=== PATIENT | female | born 1970 | race African-American/Black ===

== ENCOUNTER 2016-10-16 22:13 | Inpatient (IN) | payer MEDICAID, OTHER ==
[2016-10-16] MEDS ORDERED: LORazepam 2 MG TABLET PO PRN (22:30)
[2016-10-16] MEDS ORDERED: QUEtiapine FUMARATE 100 MG TABLET PO PRN (22:30)
[2016-10-16 23:06] VITALS: BP 138/89
[2016-10-17 00:18] VITALS: BP 100/60
[2016-10-17 08:28] LABS: BASOPHILS % (AUTO) 0.6 % (0.0-2.0); EOSINOPHILS % (AUTO) 2.6 % (1.0-6.0); HEMATOCRIT 37.7 % (36-46); HEMOGLOBIN 11.4 g/dL (12.0-16.0); LYMPHOCYTES # (AUTO) 2.4 K/uL (1.0-4.8); LYMPHOCYTES % (AUTO) 57.8 % (22.0-44.0); MEAN CORPUSCULAR HEMOGLOBIN 26.2 pg (26.0-34.0); MEAN CORPUSCULAR HGB CONC 30.3 G/dL (31.0-37.0); MEAN CORPUSCULAR VOLUME 87 fL (80-100); MONOCYTES # (AUTO) 0.5 K/uL (0.1-1.0); MONOCYTES % (AUTO) 11.2 % (2.0-9.0); NEUTROPHILS # (AUTO) 1.1 K/uL (1.8-7.7); NEUTROPHILS % (AUTO) 27.8 % (40.0-70.0); PLATELET COUNT (AUTO) 204 K/uL (150-450); RED BLOOD CELL COUNT(AUTO) 4.36 MIL/uL (4.00-5.20); WHITE BLOOD COUNT (AUTO) 4.1 K/uL (4.5-11.0)
[2016-10-17 08:29] VITALS: BP 132/79
[2016-10-17 08:34] LABS: HEMOGLOBIN A1C 6.1 % (4.5-6.2)
[2016-10-17 09:13] LABS: ALANINE AMINOTRANSFERASE 44 U/L (12-78); ANION GAP 6 mmol/L (8-16); ASPARTATE AMINOTRANSFERASE 45 U/L (15-37); BILIRUBIN,TOTAL 0.3 mg/dL (0.1-1.0); CALCIUM, TOTAL 8.6 mg/dL (8.8-10.5); CARBON DIOXIDE 29 mmol/L (22-29); CHLORIDE 105 mmol/L (98-107); CHOL/HDL RATIO 3.8 (3.9-5.7); CREATININE 1.01 mg/dL (0.60-1.30); GLOMERULAR FILTR. RATE CALC > 60 mL/min (>60); POTASSIUM 4.1 mmol/L (3.5-5.1); SODIUM SERUM 140 mmol/L (136-145); THYROID STIMULATING HORMONE 1.16 uIU/mL (0.36-3.74); TOTAL PROTEIN, SERUM 8.1 g/dL (6.4-8.2); UREA NITROGEN, BLOOD 14 mg/dL (7-18)
[2016-10-17 16:00] VITALS: BP 116/79
[2016-10-17] MEDS ORDERED: ACETAMINOPHEN 325 MG TABLET PO PRN (18:45)
[2016-10-17] MEDS ORDERED: ALBUTEROL SULFATE HFA 90 MCG/PUFF 8 GM INHALER IH PRN (18:45)
[2016-10-17] MEDS: ZOLPIDEM TARTRATE 10 MG TABLET PO PRN (20:11)
[2016-10-17] MEDS: BENZTROPINE MESYLATE 1 MG TABLET PO SCH (20:11)
[2016-10-17] MEDS: FluPHENAZine HCL 5 MG TABLET PO SCH (20:11)
[2016-10-18 06:50] VITALS: BP 110/82
[2016-10-18 08:31] VITALS: BP 102/70
[2016-10-18] MEDS: FluPHENAZine HCL 5 MG TABLET PO SCH ×2 (09:12→20:20)
[2016-10-18 16:09] VITALS: BP 114/69
[2016-10-18] MEDS: BENZTROPINE MESYLATE 1 MG TABLET PO SCH (20:19)
[2016-10-18] MEDS: ZOLPIDEM TARTRATE 10 MG TABLET PO PRN (21:01)
[2016-10-19] VITALS: BP 130/60
[2016-10-19] MEDS: IBUPROFEN 400 MG TABLET PO PRN (00:02)
[2016-10-19 08:07] VITALS: BP 109/63
[2016-10-19] MEDS: FluPHENAZine HCL 5 MG TABLET PO SCH ×2 (09:00→20:24)
[2016-10-19 16:04] VITALS: BP 110/68
[2016-10-19] MEDS: MAG HYDROX/AL HYDROX/SIMETH 30 ML SUSP UDCUP PO PRN (19:10)
[2016-10-19] MEDS: BENZTROPINE MESYLATE 1 MG TABLET PO SCH (20:24)
[2016-10-19] MEDS: ZOLPIDEM TARTRATE 10 MG TABLET PO PRN (21:01)
[2016-10-20 01:01] VITALS: BP 112/70
[2016-10-20 08:34] VITALS: BP 119/68
[2016-10-20] MEDS: FluPHENAZine HCL 5 MG TABLET PO SCH (09:04)
[2016-10-20 16:00] VITALS: BP 109/62
[2016-10-20] MEDS: BENZTROPINE MESYLATE 1 MG TABLET PO SCH (20:23)
[2016-10-20] MEDS: FluPHENAZine HCL 10 MG TABLET PO SCH (20:23)
[2016-10-21 07:29] VITALS: BP 130/100
[2016-10-21] MEDS: FluPHENAZine HCL 5 MG TABLET PO SCH (08:22)
[2016-10-21 08:32] VITALS: BP 108/57
[2016-10-21 16:00] VITALS: BP 112/62
[2016-10-21] MEDS: BENZTROPINE MESYLATE 1 MG TABLET PO SCH (20:28)
[2016-10-21] MEDS: FluPHENAZine HCL 10 MG TABLET PO SCH (21:00)
[2016-10-22 03:55] VITALS: BP 118/77
[2016-10-22] MEDS: IBUPROFEN 400 MG TABLET PO PRN ×2 (03:59→16:33)
[2016-10-22] MEDS: FluPHENAZine HCL 5 MG TABLET PO SCH (08:26)
[2016-10-22 08:38] VITALS: BP 108/55
[2016-10-22] MEDS: MAG HYDROX/AL HYDROX/SIMETH 30 ML SUSP UDCUP PO PRN (15:55)
[2016-10-22 16:24] VITALS: BP 117/88
[2016-10-22] MEDS: FluPHENAZine HCL 10 MG TABLET PO SCH (21:00)
[2016-10-22] MEDS: BENZTROPINE MESYLATE 1 MG TABLET PO SCH (21:00)
== END 2016-10-23 00:29 | disposition left against medical advice (07) | DRG 750 ==
LOC: B3A 22:36 → EDSTATUS 22:38 → B3A 10-20 08:23
PROVIDERS: ADMIT Psychiatry & Neurology Psychiatry; ATTEND Psychiatry & Neurology Psychiatry
DX: F20.5 Residual schizophrenia (principal); B18.1 Chronic viral hepatitis B without delta-agent; J44.9 Chronic obstructive pulmonary disease, unspecified; Z91.14 Patient's other noncompliance with medication regimen; F14.10 Cocaine abuse, uncomplicated; Z88.0 Allergy status to penicillin; Z91.018 Allergy to other foods; Z72.0 Tobacco use; K21.9 Gastro-esophageal reflux disease without esophagitis; K59.00 Constipation, unspecified; D64.9 Anemia, unspecified; F10.10 Alcohol abuse, uncomplicated; F15.10 Other stimulant abuse, uncomplicated
CPT/HCPCS: 83036; 84439; 84443

== ENCOUNTER 2017-04-15 20:18 | Emergency (ER) | payer MEDICAID, OTHER ==
[~2017-04-15] VITALS: Ht 160 cm; Wt 72.7 kg
[~2017-04-15 20:18] MED LIST: DIPH25 PO; DSS100 PO; FERR-89 PO; FLUD25I IM; MUPI15CR TP; MV-M1TAB2 PO; OMEP20 PO; RISP.5 PO
[2017-04-15 22:40] LABS: BASOPHILS % (AUTO) 0.3 % (0.0-2.0); EOSINOPHILS % (AUTO) 0.4 % (1.0-6.0); HEMATOCRIT 39.5 % (36-46); LYMPHOCYTES # (AUTO) 1.8 K/uL (1.0-4.8); LYMPHOCYTES % (AUTO) 28.3 % (22.0-44.0); MEAN CORPUSCULAR HEMOGLOBIN 24.1 pg (26.0-34.0); MEAN CORPUSCULAR HGB CONC 30.4 G/dL (31.0-37.0); MEAN CORPUSCULAR VOLUME 79 fL (80-100); MONOCYTES # (AUTO) 0.2 K/uL (0.1-1.0); MONOCYTES % (AUTO) 2.6 % (2.0-9.0); NEUTROPHILS # (AUTO) 4.5 K/uL (1.8-7.7); NEUTROPHILS % (AUTO) 68.4 % (40.0-70.0); PLATELET COUNT (AUTO) 297 K/uL (150-450); RED BLOOD CELL COUNT(AUTO) 4.98 MIL/uL (4.00-5.20); RED CELL DISTRIBUTION WIDTH 19.7 % (11.5-14.5); WHITE BLOOD COUNT (AUTO) 6.5 K/uL (4.5-11.0)
[2017-04-15 22:55] LABS: ANION GAP 4 mmol/L (8-16); CALCIUM, TOTAL 7.8 mg/dL (8.8-10.5); CARBON DIOXIDE 28 mmol/L (22-29); CHLORIDE 105 mmol/L (98-107); CREATININE 1.08 mg/dL (0.60-1.30); GLOMERULAR FILTR. RATE CALC > 60 mL/min (>60); POTASSIUM 4.7 mmol/L (3.5-5.1); SODIUM SERUM 137 mmol/L (136-145); UREA NITROGEN, BLOOD 24 mg/dL (7-18)
[2017-04-15 23:00] LABS: ALANINE AMINOTRANSFERASE 52 U/L (12-78); ALBUMIN 2.2 g/dL (3.4-5.0); ASPARTATE AMINOTRANSFERASE 64 U/L (15-37); BILIRUBIN,TOTAL 0.5 mg/dL (0.1-1.0); TOTAL PROTEIN, SERUM 7.2 g/dL (6.4-8.2)
[2017-04-15 23:09] LABS: RBC MORPHOLOGY COMMENT ABNORMAL RBC MORPH
[2017-04-15] MEDS ORDERED: LORazepam 1 MG TABLET PO ONE (23:45)
[2017-04-15] MEDS ORDERED: HALOPERIDOL 5 MG TABLET PO ONE (23:45)
[2017-04-15] MEDS ORDERED: DiphenhydrAMINE HCL 25 MG/10 ML ELIXIR UDCUP PO ONE (23:45)
[2017-04-16 00:41] VITALS: BP 136/52
== END 2017-04-16 00:54 | disposition home or self-care (01) ==
LOC: EMS 20:22
DX: F20.0 Paranoid schizophrenia (principal); E44.0 Moderate protein-calorie malnutrition; I11.0 Hypertensive heart disease with heart failure; I50.9 Heart failure, unspecified; E78.00 Pure hypercholesterolemia, unspecified; J45.909 Unspecified asthma, uncomplicated; F17.210 Nicotine dependence, cigarettes, uncomplicated; F12.90 Cannabis use, unspecified, uncomplicated; F14.90 Cocaine use, unspecified, uncomplicated; F11.90 Opioid use, unspecified, uncomplicated; F15.90 Other stimulant use, unspecified, uncomplicated; Z68.28 Body mass index [BMI] 28.0-28.9, adult; Z88.0 Allergy status to penicillin; Z91.018 Allergy to other foods
CPT/HCPCS: 36415; 80053; 84703; 85025; 99284; 99406; G0480

== ENCOUNTER 2017-05-03 12:13 | Inpatient (IN) | payer MEDICAID, OTHER ==
[~2017-05-03] VITALS: Ht 160 cm; Wt 65.8 kg
[2017-05-03] MEDS ORDERED: NITROGLYCERIN 2% (1 GM=INCH) PACKET TP ONE (13:00)
[2017-05-03] MEDS ORDERED: ASPIRIN 81 MG CHEWABLE TABLET PO ONE (13:00)
[2017-05-03 13:23] LABS: HEMATOCRIT 36.6 % (36-46); HEMOGLOBIN 11.3 g/dL (12.0-16.0); MEAN CORPUSCULAR HEMOGLOBIN 24.5 pg (26.0-34.0); MEAN CORPUSCULAR VOLUME 79 fL (80-100); PLATELET COUNT (AUTO) 261 K/uL (150-450); RED BLOOD CELL COUNT(AUTO) 4.63 MIL/uL (4.00-5.20); RED CELL DISTRIBUTION WIDTH 20.4 % (11.5-14.5); WHITE BLOOD COUNT (AUTO) 4.4 K/uL (4.5-11.0)
[2017-05-03 13:34] LABS: ANION GAP 7 mmol/L (8-16); CALCIUM, TOTAL 8.1 mg/dL (8.8-10.5); CARBON DIOXIDE 27 mmol/L (22-29); CHLORIDE 107 mmol/L (98-107); GLOMERULAR FILTR. RATE CALC > 60 mL/min (>60); POTASSIUM 4.5 mmol/L (3.5-5.1); SODIUM SERUM 141 mmol/L (136-145); UREA NITROGEN, BLOOD 14 mg/dL (7-18)
[2017-05-03 13:56] LABS: BAND NEUTROPHILS % (MANUAL) 1 % (1-5); LYMPHOCYTES % (MANUAL) 23 % (22-44); REACTIVE LYMPHOCYTES 17 % (0-0); TOTAL CELLS COUNTED 100
[2017-05-03 13:58] LABS: B-TYPE NATRIURETIC PEPTIDE 1830 pg/mL (0-100)
[2017-05-03 13:59] LABS: ALANINE AMINOTRANSFERASE 40 U/L (12-78); ALBUMIN 2.4 g/dL (3.4-5.0); ASPARTATE AMINOTRANSFERASE 52 U/L (15-37); BILIRUBIN,TOTAL 0.5 mg/dL (0.1-1.0); CREATINE KINASE MB 1.3 ng/mL (0-5); CREATINE KINASE, TOTAL 97 U/L (26-192); TOTAL PROTEIN, SERUM 7.9 g/dL (6.4-8.2)
[2017-05-03] MEDS ORDERED: FUROSEMIDE 40 MG/4 ML VIAL IVP ONE (14:15)
[2017-05-03 14:27] LABS: GLUCOSE,POINT OF CARE 72 MG/DL (70-110)
[2017-05-03] MEDS ORDERED: ACETAMINOPHEN 325 MG TABLET PO PRN ×2 (15:15→20:00)
[2017-05-03] MEDS ORDERED: LEVOFLOXACIN 500 MG/D5% WATER 100 ML IV SCH (15:15)
[2017-05-03] MEDS ORDERED: 0.9% SODIUM CHLORIDE 10 ML SYRINGE IVP PRN ×2 (15:15→20:00)
[2017-05-03] MEDS ORDERED: MORPHINE SULFATE 2 MG/ML SYRINGE IVP STA (18:23)
[2017-05-03] MEDS ORDERED: ONDANSETRON HCL 4 MG/2 ML VIAL IVP ONE (18:30)
[2017-05-03 19:21] VITALS: BP 103/64
[2017-05-03] MEDS ORDERED: MAGNESIUM HYDROXIDE SUSPENSION 30 ML UDCUP PO PRN (20:00)
[2017-05-03] MEDS ORDERED: OxyCODONE HCL/ACETAMINOPHEN 5-325 MG TABLET PO PRN ×2 (20:00)
[2017-05-03] MEDS: DOCUSATE SODIUM 100 MG CAPSULE PO SCH ×2 (21:00→22:38)
[2017-05-03] MEDS: DiphenhydrAMINE HCL 25 MG CAPSULE PO SCH (22:38)
[2017-05-03] MEDS: PANTOPRAZOLE SODIUM 40 MG/VIAL IVP SCH (22:38)
[2017-05-03] MEDS: RisperiDONE 0.5 MG TABLET PO SCH (22:38)
[2017-05-03] MEDS: MULTIVITAMINS WITH MINERALS, THERAPEUTIC TABLET PO SCH (22:38)
[2017-05-03] MEDS: FUROSEMIDE 40 MG/4 ML VIAL IVP SCH (22:39)
[2017-05-03] MEDS: MUPIROCIN CALCIUM 2% 15 GM CREAM TP SCH (22:39)
[2017-05-03 23:27] VITALS: BP 103/70
[2017-05-04 05:03] VITALS: BP 101/65
[2017-05-04 06:41] LABS: ALANINE AMINOTRANSFERASE 34 U/L (12-78); ALBUMIN 2.1 g/dL (3.4-5.0); ANION GAP 5 mmol/L (8-16); ASPARTATE AMINOTRANSFERASE 39 U/L (15-37); BILIRUBIN,TOTAL 0.5 mg/dL (0.1-1.0); CARBON DIOXIDE 29 mmol/L (22-29); CHLORIDE 104 mmol/L (98-107); CREATININE 1.03 mg/dL (0.60-1.30); GLOMERULAR FILTR. RATE CALC > 60 mL/min (>60); POTASSIUM 4.3 mmol/L (3.5-5.1); SODIUM SERUM 138 mmol/L (136-145); TOTAL PROTEIN, SERUM 7.4 g/dL (6.4-8.2); UREA NITROGEN, BLOOD 13 mg/dL (7-18)
[2017-05-04 07:13] LABS: BASOPHILS # (AUTO) 0.01 K/uL (0.00-0.20); BASOPHILS % (AUTO) 0.2 % (0.0-2.0); EOSINOPHILS # (AUTO) 0.08 K/uL (0.00-0.70); EOSINOPHILS % (AUTO) 1.85 % (1.0-6.0); HEMOGLOBIN 10.8 g/dL (12.0-16.0); LYMPHOCYTES # (AUTO) 1.7 K/uL (1.0-4.8); LYMPHOCYTES % (AUTO) 41.7 % (22.0-44.0); MEAN CORPUSCULAR HGB CONC 30.8 G/dL (31.0-37.0); MEAN CORPUSCULAR VOLUME 78 fL (80-100); MONOCYTES # (AUTO) 0.7 K/uL (0.1-1.0); MONOCYTES % (AUTO) 17.9 % (2.0-9.0); NEUTROPHILS # (AUTO) 1.6 K/uL (1.8-7.7); NEUTROPHILS % (AUTO) 38.3 % (40.0-70.0); PLATELET COUNT (AUTO) 279 K/uL (150-450); RED BLOOD CELL COUNT(AUTO) 4.49 MIL/uL (4.00-5.20); WHITE BLOOD COUNT (AUTO) 4.1 K/uL (4.5-11.0)
[2017-05-04 07:48] VITALS: BP 99/74
[2017-05-04 07:49] LABS: B-TYPE NATRIURETIC PEPTIDE 1310 pg/mL (0-100)
[2017-05-04] MEDS ORDERED: FERROUS SULFATE 325 MG EC TABLET PO SCH (08:00)
[2017-05-04 08:25] LABS: RBC MORPHOLOGY COMMENT ABNORMAL RBC MORPH
[2017-05-04] MEDS: MULTIVITAMINS WITH MINERALS, THERAPEUTIC TABLET PO SCH (08:58)
[2017-05-04] MEDS: DOCUSATE SODIUM 100 MG CAPSULE PO SCH ×3 (09:00→20:15)
[2017-05-04] MEDS: RisperiDONE 0.5 MG TABLET PO SCH ×2 (09:03→20:15)
[2017-05-04] MEDS: OMEPRAZOLE 20 MG CAPSULE PO SCH (09:03)
[2017-05-04] MEDS: PANTOPRAZOLE SODIUM 40 MG/VIAL IVP SCH (09:04)
[2017-05-04] MEDS: FUROSEMIDE 40 MG/4 ML VIAL IVP SCH (09:05)
[2017-05-04] MEDS: MUPIROCIN CALCIUM 2% 15 GM CREAM TP SCH ×2 (09:07→20:15)
[2017-05-04 11:24] VITALS: BP 108/74
[2017-05-04 16:06] VITALS: BP 103/58
[2017-05-04 19:52] VITALS: BP 105/62
[2017-05-04] MEDS: DiphenhydrAMINE HCL 25 MG CAPSULE PO SCH (20:15)
[2017-05-04 23:42] VITALS: BP 105/67
[2017-05-05 04:46] VITALS: BP 103/58
[2017-05-05 07:11] VITALS: BP 101/65
[2017-05-05 07:24] LABS: ANION GAP 2 mmol/L (8-16); CALCIUM, TOTAL 8.3 mg/dL (8.8-10.5); CARBON DIOXIDE 33 mmol/L (22-29); CHLORIDE 101 mmol/L (98-107); CREATININE 1.08 mg/dL (0.60-1.30); GLOMERULAR FILTR. RATE CALC > 60 mL/min (>60); POTASSIUM 5.6 mmol/L (3.5-5.1); SODIUM SERUM 136 mmol/L (136-145); UREA NITROGEN, BLOOD 19 mg/dL (7-18)
[2017-05-05] MEDS: OMEPRAZOLE 20 MG CAPSULE PO SCH (08:41)
[2017-05-05] MEDS: DOCUSATE SODIUM 100 MG CAPSULE PO SCH ×3 (08:41→20:22)
[2017-05-05] MEDS: RisperiDONE 0.5 MG TABLET PO SCH ×2 (08:41→20:22)
[2017-05-05] MEDS: PANTOPRAZOLE SODIUM 40 MG/VIAL IVP SCH (08:42)
[2017-05-05] MEDS: MULTIVITAMINS WITH MINERALS, THERAPEUTIC TABLET PO SCH (08:42)
[2017-05-05] MEDS: MUPIROCIN CALCIUM 2% 15 GM CREAM TP SCH ×2 (08:42→20:22)
[2017-05-05] MEDS ORDERED: FUROSEMIDE 20 MG TABLET PO SCH (09:00)
[2017-05-05 11:13] VITALS: BP 102/72
[2017-05-05] MEDS: CARVEDILOL 3.125 MG TABLET PO SCH ×2 (14:01→20:22)
[2017-05-05 15:43] VITALS: BP 114/68
[2017-05-05 19:56] VITALS: BP 101/55
[2017-05-05] MEDS: FUROSEMIDE 20 MG TABLET PO SCH (20:22)
[2017-05-05] MEDS: DiphenhydrAMINE HCL 25 MG CAPSULE PO SCH (20:22)
[2017-05-06] VITALS (7 sets, daily range): BP systolic 100–129; BP diastolic 56–79
[2017-05-06] MEDS: MULTIVITAMINS WITH MINERALS, THERAPEUTIC TABLET PO SCH (08:34)
[2017-05-06] MEDS: CARVEDILOL 3.125 MG TABLET PO SCH ×2 (08:34→20:21)
[2017-05-06] MEDS: OMEPRAZOLE 20 MG CAPSULE PO SCH (08:34)
[2017-05-06] MEDS: FUROSEMIDE 20 MG TABLET PO SCH ×2 (08:35→20:22)
[2017-05-06] MEDS: RisperiDONE 0.5 MG TABLET PO SCH ×2 (08:35→20:22)
[2017-05-06] MEDS: MUPIROCIN CALCIUM 2% 15 GM CREAM TP SCH ×2 (08:35→20:22)
[2017-05-06] MEDS: DOCUSATE SODIUM 100 MG CAPSULE PO SCH ×2 (08:35)
[2017-05-06] MEDS: LISINOPRIL 5 MG TABLET PO SCH (10:00)
[2017-05-06] MEDS: DiphenhydrAMINE HCL 25 MG CAPSULE PO SCH (20:21)
[2017-05-07 04:56] VITALS: BP 101/58
[2017-05-07 07:35] VITALS: BP 102/62
[2017-05-07] MEDS: OMEPRAZOLE 20 MG CAPSULE PO SCH (08:54)
[2017-05-07] MEDS: CARVEDILOL 3.125 MG TABLET PO SCH ×2 (08:54→23:48)
[2017-05-07] MEDS: MULTIVITAMINS WITH MINERALS, THERAPEUTIC TABLET PO SCH (08:54)
[2017-05-07] MEDS: FUROSEMIDE 20 MG TABLET PO SCH ×2 (08:54→20:49)
[2017-05-07] MEDS: DOCUSATE SODIUM 100 MG CAPSULE PO SCH (08:54)
[2017-05-07] MEDS: RisperiDONE 0.5 MG TABLET PO SCH ×2 (08:55→20:49)
[2017-05-07 10:01] LABS: ANION GAP 4 mmol/L (8-16); CALCIUM, TOTAL 8.3 mg/dL (8.8-10.5); CARBON DIOXIDE 30 mmol/L (22-29); CHLORIDE 98 mmol/L (98-107); CREATININE 1.07 mg/dL (0.60-1.30); GLOMERULAR FILTR. RATE CALC > 60 mL/min (>60); POTASSIUM 4.4 mmol/L (3.5-5.1); SODIUM SERUM 132 mmol/L (136-145); UREA NITROGEN, BLOOD 15 mg/dL (7-18)
[2017-05-07 10:46] VITALS: BP 103/72
[2017-05-07] MEDS: MUPIROCIN CALCIUM 2% 15 GM CREAM TP SCH ×2 (11:09→20:49)
[2017-05-07] MEDS: LISINOPRIL 5 MG TABLET PO SCH (14:16)
[2017-05-07 15:53] VITALS: BP 109/76
[2017-05-07 19:52] VITALS: BP 102/66
[2017-05-07] MEDS: DiphenhydrAMINE HCL 25 MG CAPSULE PO SCH (20:49)
[2017-05-07 23:11] VITALS: BP 109/66
[2017-05-08 04:29] VITALS: BP 113/68
[2017-05-08 07:30] VITALS: BP 102/75
[2017-05-08] MEDS: CARVEDILOL 3.125 MG TABLET PO SCH (07:51)
[2017-05-08] MEDS: FUROSEMIDE 20 MG TABLET PO SCH (07:51)
[2017-05-08] MEDS: RisperiDONE 0.5 MG TABLET PO SCH (07:51)
[2017-05-08] MEDS: MULTIVITAMINS WITH MINERALS, THERAPEUTIC TABLET PO SCH (07:51)
[2017-05-08] MEDS: OMEPRAZOLE 20 MG CAPSULE PO SCH (07:51)
[2017-05-08] MEDS: DOCUSATE SODIUM 100 MG CAPSULE PO SCH (07:51)
[2017-05-08] MEDS: LISINOPRIL 5 MG TABLET PO SCH (09:00)
[2017-05-08] MEDS: MUPIROCIN CALCIUM 2% 15 GM CREAM TP SCH (09:00)
[2017-05-08 11:20] VITALS: BP 106/67
[2017-05-17] MEDS ORDERED: FluPHENAZine DECANOATE 25 MG/ML IM SCH (09:00)
== END 2017-05-08 13:55 | disposition home or self-care (01) | DRG 194 ==
LOC: EMS 12:15 → 5S 18:25
PROVIDERS: ADMIT Internal Medicine; ATTEND Internal Medicine
DX: I11.0 Hypertensive heart disease with heart failure (principal); E43 Unspecified severe protein-calorie malnutrition; I42.9 Cardiomyopathy, unspecified; E87.5 Hyperkalemia; I07.1 Rheumatic tricuspid insufficiency; F20.0 Paranoid schizophrenia; I50.23 Acute on chronic systolic (congestive) heart failure; D64.9 Anemia, unspecified; E78.00 Pure hypercholesterolemia, unspecified; J45.909 Unspecified asthma, uncomplicated; F17.210 Nicotine dependence, cigarettes, uncomplicated; F14.90 Cocaine use, unspecified, uncomplicated; F12.90 Cannabis use, unspecified, uncomplicated; F15.90 Other stimulant use, unspecified, uncomplicated; F19.10 Other psychoactive substance abuse, uncomplicated; Z98.51 Tubal ligation status; Z68.25 Body mass index [BMI] 25.0-25.9, adult; Z88.0 Allergy status to penicillin; Z91.048 Other nonmedicinal substance allergy status
CPT/HCPCS: 82962; 93005; 93306; 96365; 96375; 99285; C9113; J1940; J1956; J2270; J2405

== ENCOUNTER 2017-05-16 02:13 | Emergency (ER) | payer OTHER ==
[~2017-05-16] VITALS: Ht 162.6 cm; Wt 67.0 kg
[2017-05-16 02:58] LABS: ANION GAP 4 mmol/L (8-16); CALCIUM, TOTAL 8.6 mg/dL (8.8-10.5); CARBON DIOXIDE 32 mmol/L (22-29); CHLORIDE 107 mmol/L (98-107); CREATININE 1.18 mg/dL (0.60-1.30); GLOMERULAR FILTR. RATE CALC 60 mL/min (>60); SODIUM SERUM 143 mmol/L (136-145); UREA NITROGEN, BLOOD 25 mg/dL (7-18)
[2017-05-16 02:59] LABS: HEMATOCRIT 39.7 % (36-46); HEMOGLOBIN 12.1 g/dL (12.0-16.0); MEAN CORPUSCULAR HEMOGLOBIN 23.8 pg (26.0-34.0); MEAN CORPUSCULAR HGB CONC 30.4 G/dL (31.0-37.0); MEAN CORPUSCULAR VOLUME 78 fL (80-100); PLATELET COUNT (AUTO) 283 K/uL (150-450); RED BLOOD CELL COUNT(AUTO) 5.08 MIL/uL (4.00-5.20); RED CELL DISTRIBUTION WIDTH 20.1 % (11.5-14.5); WHITE BLOOD COUNT (AUTO) 6.7 K/uL (4.5-11.0)
[2017-05-16 03:00] LABS: INR 1.2 (0.9-1.1); PROTHROMBIN TIME 12.8 SEC (9.4-11.6)
[2017-05-16 03:04] LABS: ALANINE AMINOTRANSFERASE 29 U/L (12-78); ALBUMIN 2.6 g/dL (3.4-5.0); ASPARTATE AMINOTRANSFERASE 37 U/L (15-37); BILIRUBIN,TOTAL 0.4 mg/dL (0.1-1.0); CREATINE KINASE, TOTAL 54 U/L (26-192); TOTAL PROTEIN, SERUM 8.2 g/dL (6.4-8.2)
[2017-05-16 03:22] LABS: B-TYPE NATRIURETIC PEPTIDE 1190 pg/mL (0-100)
[2017-05-16 03:35] VITALS: BP 125/71
[2017-05-16 04:44] LABS: EOSINOPHILS % (MANUAL) 1 % (1-6); LYMPHOCYTES % (MANUAL) 34 % (22-44); TOTAL CELLS COUNTED 100
[2017-05-16 04:45] LABS: RBC MORPHOLOGY COMMENT ABNORMAL RBC MORPH
== END 2017-05-16 04:08 | disposition home or self-care (01) ==
LOC: EMS 02:15
DX: I51.7 Cardiomegaly (principal); R07.89 Other chest pain; F20.9 Schizophrenia, unspecified; I11.0 Hypertensive heart disease with heart failure; I50.9 Heart failure, unspecified; E78.00 Pure hypercholesterolemia, unspecified; J45.909 Unspecified asthma, uncomplicated; F17.210 Nicotine dependence, cigarettes, uncomplicated; F12.90 Cannabis use, unspecified, uncomplicated; F11.90 Opioid use, unspecified, uncomplicated; F14.90 Cocaine use, unspecified, uncomplicated; Z88.0 Allergy status to penicillin; Z91.018 Allergy to other foods
CPT/HCPCS: 93005; 99285; 99406

== ENCOUNTER 2017-05-16 09:56 | Emergency (ER) | payer OTHER ==
[~2017-05-16] VITALS: Ht 160 cm; Wt 65.5 kg
[2017-05-16 11:35] LABS: EOSINOPHILS % (AUTO) 0 % (1.0-6.0); HEMATOCRIT 41.5 % (36-46); HEMOGLOBIN 12.5 g/dL (12.0-16.0); LYMPHOCYTES # (AUTO) 2.4 K/uL (1.0-4.8); LYMPHOCYTES % (AUTO) 40.8 % (22.0-44.0); MEAN CORPUSCULAR HEMOGLOBIN 23.8 pg (26.0-34.0); MEAN CORPUSCULAR HGB CONC 30.2 G/dL (31.0-37.0); MEAN CORPUSCULAR VOLUME 79 fL (80-100); MONOCYTES # (AUTO) 0.8 K/uL (0.1-1.0); NEUTROPHILS # (AUTO) 2.7 K/uL (1.8-7.7); NEUTROPHILS % (AUTO) 46.2 % (40.0-70.0); PLATELET COUNT (AUTO) 270 K/uL (150-450); RED BLOOD CELL COUNT(AUTO) 5.26 MIL/uL (4.00-5.20); RED CELL DISTRIBUTION WIDTH 19.4 % (11.5-14.5); WHITE BLOOD COUNT (AUTO) 5.8 K/uL (4.5-11.0)
[2017-05-16 11:45] LABS: ANION GAP 5 mmol/L (8-16); CALCIUM, TOTAL 8.4 mg/dL (8.8-10.5); CARBON DIOXIDE 31 mmol/L (22-29); CHLORIDE 106 mmol/L (98-107); CREATININE 1.02 mg/dL (0.60-1.30); GLOMERULAR FILTR. RATE CALC > 60 mL/min (>60); POTASSIUM 3.6 mmol/L (3.5-5.1); SODIUM SERUM 142 mmol/L (136-145); UREA NITROGEN, BLOOD 23 mg/dL (7-18)
[2017-05-16 11:50] LABS: ALANINE AMINOTRANSFERASE 31 U/L (12-78); ALBUMIN 2.7 g/dL (3.4-5.0); ASPARTATE AMINOTRANSFERASE 42 U/L (15-37); BILIRUBIN,TOTAL 0.5 mg/dL (0.1-1.0); TOTAL PROTEIN, SERUM 8.6 g/dL (6.4-8.2)
[2017-05-16 12:04] LABS: RBC MORPHOLOGY COMMENT ABNORMAL RBC MORPH
[2017-05-16 12:42] VITALS: BP 135/72
== END 2017-05-16 12:48 | disposition home or self-care (01) ==
LOC: EEVIPCON 10:01 → EMS 10:01
DX: F20.0 Paranoid schizophrenia (principal); I11.0 Hypertensive heart disease with heart failure; I50.9 Heart failure, unspecified; E78.00 Pure hypercholesterolemia, unspecified; J45.909 Unspecified asthma, uncomplicated; F17.210 Nicotine dependence, cigarettes, uncomplicated; F12.90 Cannabis use, unspecified, uncomplicated; F14.90 Cocaine use, unspecified, uncomplicated; F11.90 Opioid use, unspecified, uncomplicated; F19.90 Other psychoactive substance use, unspecified, uncomplicated; Z88.0 Allergy status to penicillin; Z91.018 Allergy to other foods
CPT/HCPCS: 36415; 80053; 85025; 99284; G0480

== ENCOUNTER 2017-06-06 12:55 | Inpatient (IN) | payer OTHER ==
[~2017-06-06] VITALS: Ht 160 cm; Wt 63.8 kg
[~2017-06-06 12:55] MED LIST changes: -MUPI15CR TP
[2017-06-06] MEDS ORDERED: ASPI81 PO (13:15)
[2017-06-06] MEDS ORDERED: ALBU8HFA IH (13:15)
[2017-06-06] MEDS ORDERED: FURO20 PO (13:15)
[2017-06-06 14:18] LABS: HEMATOCRIT 36.4 % (36-46); HEMOGLOBIN 10.9 g/dL (12.0-16.0); MEAN CORPUSCULAR HEMOGLOBIN 23.2 pg (26.0-34.0); MEAN CORPUSCULAR HGB CONC 29.9 G/dL (31.0-37.0); MEAN CORPUSCULAR VOLUME 78 fL (80-100); PLATELET COUNT (AUTO) 263 K/uL (150-450); RED BLOOD CELL COUNT(AUTO) 4.69 MIL/uL (4.00-5.20); RED CELL DISTRIBUTION WIDTH 20.7 % (11.5-14.5)
[2017-06-06 14:34] LABS: INR 1.3 (0.9-1.1); PROTHROMBIN TIME 13.5 SEC (9.4-11.6)
[2017-06-06 14:36] LABS: ANION GAP 4 mmol/L (8-16); CALCIUM, TOTAL 8.1 mg/dL (8.8-10.5); CARBON DIOXIDE 29 mmol/L (22-29); CHLORIDE 104 mmol/L (98-107); CREATININE 1.04 mg/dL (0.60-1.30); GLOMERULAR FILTR. RATE CALC > 60 mL/min (>60); GLUCOSE,RANDOM 118 mg/dL (70-110); POTASSIUM 4.6 mmol/L (3.5-5.1); SODIUM SERUM 137 mmol/L (136-145); UREA NITROGEN, BLOOD 17 mg/dL (7-18)
[2017-06-06 14:40] LABS: B-TYPE NATRIURETIC PEPTIDE 2140 pg/mL (0-100)
[2017-06-06 14:42] LABS: BAND NEUTROPHILS % (MANUAL) 9 % (1-5); LYMPHOCYTES % (MANUAL) 41 % (22-44); MONOCYTES % (MANUAL) 5 % (2-9); SEGMENTED NEUTROPHILS % 45 % (40-70)
[2017-06-06 15:00] LABS: ALANINE AMINOTRANSFERASE 29 U/L (12-78); ALBUMIN 2.3 g/dL (3.4-5.0); ALKALINE PHOSPHATASE 75 U/L (46-116); ASPARTATE AMINOTRANSFERASE 52 U/L (15-37); BILIRUBIN,TOTAL 0.7 mg/dL (0.1-1.0); CREATINE KINASE MB 1.2 ng/mL (0-5); CREATINE KINASE, TOTAL 81 U/L (26-192)
[2017-06-06] MEDS ORDERED: ACETAMINOPHEN 500 MG TABLET PO ONE (15:00)
[2017-06-06 15:47] LABS: AMPHET/METH SCREEN,URINE NEGATIVE (NEGATIVE); BARBITURATE SCREEN, URINE NEGATIVE (NEGATIVE); BENZODIAZEPINES SCREEN,URINE NEGATIVE (NEGATIVE); CANNABINOID SCREEN,URINE NEGATIVE (NEGATIVE); COCAINE SCREEN,URINE POSITIVE (NEGATIVE); METHADONE SCREEN, URINE NEGATIVE (NEGATIVE); OPIATE SCREEN,URINE NEGATIVE (NEGATIVE); PHENCYCLIDINE SCREEN,URINE NEGATIVE (NEGATIVE)
[2017-06-06 16:13] LABS: BILIRUBIN,URINE NEGATIVE (NEGATIVE); GLUCOSE, URINE (UA) NEGATIVE (NEGATIVE); KETONES,URINE NEGATIVE (NEGATIVE); LEUKOCYTE ESTERASE ,URINE SMALL (NEGATIVE); NITRATE,URINE NEGATIVE (NEGATIVE); OCCULT BLOOD,URINE NEGATIVE (NEGATIVE); PROTEIN,URINE SEE CONFIRM (NEGATIVE)
[2017-06-06] MEDS ORDERED: ACETAMINOPHEN 325 MG TABLET PO PRN (16:30)
[2017-06-06] MEDS ORDERED: FUROSEMIDE 40 MG/4 ML VIAL IVP ONE (16:30)
[2017-06-06] MEDS ORDERED: ONDANSETRON HCL 4 MG/2 ML VIAL IVP PRN (16:30)
[2017-06-06] MEDS ORDERED: 0.9% SODIUM CHLORIDE 10 ML SYRINGE IVP PRN ×2 (16:30→17:45)
[2017-06-06 16:54] LABS: APPEARANCE,URINE SLIGHTLY CLOUDY (CLEAR); BACTERIA,URINE Few /HPF (None Seen); RBC,URINE 0-2 /HPF (0-2); SULFOSALICYLIC ACID,URINE 1+ (Negative)
[2017-06-06 16:55] LABS: SQUAMOUS EPITHELIAL CELL,UR Moderate /LPF (None Seen)
[2017-06-06] MEDS ORDERED: HYDROCODONE/ACETAMINOPHEN 5-325 MG TABLET PO PRN (17:45)
[2017-06-06 18:28] LABS: BASOPHILS % (AUTO) 1.7 % (0.0-2.0); EOSINOPHILS % (AUTO) 0.7 % (1.0-6.0); HEMATOCRIT 37.4 % (36-46); HEMOGLOBIN 11.3 g/dL (12.0-16.0); LYMPHOCYTES # (AUTO) 2.1 K/uL (1.0-4.8); MEAN CORPUSCULAR HEMOGLOBIN 23.4 pg (26.0-34.0); MEAN CORPUSCULAR HGB CONC 30.2 G/dL (31.0-37.0); MEAN CORPUSCULAR VOLUME 77 fL (80-100); MONOCYTES # (AUTO) 0.6 K/uL (0.1-1.0); MONOCYTES % (AUTO) 12.5 % (2.0-9.0); NEUTROPHILS # (AUTO) 1.9 K/uL (1.8-7.7); NEUTROPHILS % (AUTO) 41.1 % (40.0-70.0); PLATELET COUNT (AUTO) 300 K/uL (150-450); RED BLOOD CELL COUNT(AUTO) 4.84 MIL/uL (4.00-5.20); RED CELL DISTRIBUTION WIDTH 20.8 % (11.5-14.5)
[2017-06-06 18:57] LABS: CALCIUM, TOTAL 8.2 mg/dL (8.8-10.5); CREATININE 1.18 mg/dL (0.60-1.30); POTASSIUM 4.9 mmol/L (3.5-5.1)
[2017-06-06] MEDS: FUROSEMIDE 40 MG/4 ML VIAL IVP SCH ×2 (19:19→19:38)
[2017-06-06] MEDS: ASPIRIN 81 MG CHEWABLE TABLET PO SCH (19:19)
[2017-06-06] MEDS: POTASSIUM CHLORIDE 8 MEQ ER TABLET PO SCH (19:19)
[2017-06-06] MEDS: PANTOPRAZOLE SODIUM 40 MG/VIAL IVP SCH (19:19)
[2017-06-06] MEDS: IPRATROPIUM BROMIDE 0.5 MG/2.5 ML NEB SOLUTION NEB SCH (21:00)
[2017-06-06] MEDS: ALBUTEROL SULFATE 2.5 MG/0.5 ML NEB SOLUTION NEB SCH (21:00)
[2017-06-06 21:38] VITALS: BP 121/71
[2017-06-06 21:41] VITALS: BP 121/71
[2017-06-06] MEDS: MORPHINE SULFATE 2 MG/ML SYRINGE IVP PRN (21:50)
[2017-06-06 23:38] VITALS: BP 119/69
[2017-06-07] VITALS (7 sets, daily range): BP systolic 95–119; BP diastolic 58–70
[2017-06-07] MEDS: IPRATROPIUM BROMIDE 0.5 MG/2.5 ML NEB SOLUTION NEB SCH ×4 (02:28→20:48)
[2017-06-07] MEDS: ALBUTEROL SULFATE 2.5 MG/0.5 ML NEB SOLUTION NEB SCH ×2 (02:28→07:30)
[2017-06-07] MEDS: ASPIRIN 81 MG CHEWABLE TABLET PO SCH (09:49)
[2017-06-07] MEDS: PANTOPRAZOLE SODIUM 40 MG/VIAL IVP SCH (09:49)
[2017-06-07] MEDS: METOPROLOL SUCCINATE 25 MG ER TABLET PO SCH (09:49)
[2017-06-07] MEDS: LISINOPRIL 5 MG TABLET PO SCH (09:49)
[2017-06-07] MEDS: POTASSIUM CHLORIDE 8 MEQ ER TABLET PO SCH (10:13)
[2017-06-07] MEDS: MORPHINE SULFATE 2 MG/ML SYRINGE IVP PRN (23:23)
[2017-06-08] MEDS: IPRATROPIUM BROMIDE 0.5 MG/2.5 ML NEB SOLUTION NEB SCH ×4 (02:14→20:17)
[2017-06-08 04:11] VITALS: BP 117/74
[2017-06-08 06:30] LABS: EOSINOPHILS % (AUTO) 1.7 % (1.0-6.0); HEMATOCRIT 37.7 % (36-46); HEMOGLOBIN 11.5 g/dL (12.0-16.0); LYMPHOCYTES # (AUTO) 1.7 K/uL (1.0-4.8); LYMPHOCYTES % (AUTO) 35.9 % (22.0-44.0); MEAN CORPUSCULAR HEMOGLOBIN 23.4 pg (26.0-34.0); MEAN CORPUSCULAR HGB CONC 30.6 G/dL (31.0-37.0); MEAN CORPUSCULAR VOLUME 76 fL (80-100); MONOCYTES # (AUTO) 0.7 K/uL (0.1-1.0); MONOCYTES % (AUTO) 15.4 % (2.0-9.0); NEUTROPHILS # (AUTO) 2.2 K/uL (1.8-7.7); PLATELET COUNT (AUTO) 275 K/uL (150-450); RED BLOOD CELL COUNT(AUTO) 4.94 MIL/uL (4.00-5.20); RED CELL DISTRIBUTION WIDTH 20.5 % (11.5-14.5)
[2017-06-08 07:03] LABS: ALANINE AMINOTRANSFERASE 26 U/L (12-78); ALBUMIN 2.1 g/dL (3.4-5.0); ALKALINE PHOSPHATASE 69 U/L (46-116); ANION GAP 2 mmol/L (8-16); ASPARTATE AMINOTRANSFERASE 44 U/L (15-37); BILIRUBIN,TOTAL 0.6 mg/dL (0.1-1.0); CARBON DIOXIDE 31 mmol/L (22-29); CHLORIDE 101 mmol/L (98-107); CREATININE 0.95 mg/dL (0.60-1.30); GLOMERULAR FILTR. RATE CALC > 60 mL/min (>60); GLUCOSE,RANDOM 81 mg/dL (70-110); SODIUM SERUM 134 mmol/L (136-145); TOTAL PROTEIN, SERUM 7.7 g/dL (6.4-8.2); UREA NITROGEN, BLOOD 14 mg/dL (7-18)
[2017-06-08 07:41] VITALS: BP 107/76
[2017-06-08] MEDS: LISINOPRIL 5 MG TABLET PO SCH (08:14)
[2017-06-08] MEDS: PANTOPRAZOLE SODIUM 40 MG/VIAL IVP SCH (08:14)
[2017-06-08] MEDS: POTASSIUM CHLORIDE 8 MEQ ER TABLET PO SCH (08:14)
[2017-06-08] MEDS: METOPROLOL SUCCINATE 25 MG ER TABLET PO SCH ×2 (08:14→20:39)
[2017-06-08] MEDS: MULTIVITAMINS WITH MINERALS, THERAPEUTIC TABLET PO SCH (08:14)
[2017-06-08] MEDS: ASPIRIN 81 MG CHEWABLE TABLET PO SCH (08:15)
[2017-06-08] MEDS: FUROSEMIDE 40 MG/4 ML VIAL IVP SCH (09:00)
[2017-06-08 11:26] VITALS: BP 107/73
[2017-06-08 15:17] VITALS: BP 118/64
[2017-06-08 19:18] VITALS: BP 106/51
[2017-06-08 23:38] VITALS: BP 98/61
[2017-06-09] MEDS: IPRATROPIUM BROMIDE 0.5 MG/2.5 ML NEB SOLUTION NEB SCH ×4 (02:15→19:31)
[2017-06-09 04:22] VITALS: BP 104/56
[2017-06-09 07:23] LABS: BASOPHILS % (AUTO) 0.3 % (0.0-2.0); EOSINOPHILS % (AUTO) 2.1 % (1.0-6.0); HEMATOCRIT 37.9 % (36-46); HEMOGLOBIN 11.5 g/dL (12.0-16.0); LYMPHOCYTES # (AUTO) 2.1 K/uL (1.0-4.8); LYMPHOCYTES % (AUTO) 44.9 % (22.0-44.0); MEAN CORPUSCULAR HEMOGLOBIN 23.3 pg (26.0-34.0); MEAN CORPUSCULAR HGB CONC 30.3 G/dL (31.0-37.0); MEAN CORPUSCULAR VOLUME 77 fL (80-100); MONOCYTES # (AUTO) 0.8 K/uL (0.1-1.0); MONOCYTES % (AUTO) 16.2 % (2.0-9.0); NEUTROPHILS # (AUTO) 1.7 K/uL (1.8-7.7); NEUTROPHILS % (AUTO) 36.5 % (40.0-70.0); PLATELET COUNT (AUTO) 246 K/uL (150-450); RED BLOOD CELL COUNT(AUTO) 4.91 MIL/uL (4.00-5.20); RED CELL DISTRIBUTION WIDTH 20.9 % (11.5-14.5)
[2017-06-09 07:31] VITALS: BP 112/70
[2017-06-09 08:12] LABS: ALANINE AMINOTRANSFERASE 27 U/L (12-78); ALBUMIN 2.3 g/dL (3.4-5.0); ALKALINE PHOSPHATASE 76 U/L (46-116); ANION GAP 5 mmol/L (8-16); ASPARTATE AMINOTRANSFERASE 41 U/L (15-37); BILIRUBIN,TOTAL 0.7 mg/dL (0.1-1.0); CALCIUM, TOTAL 8.1 mg/dL (8.8-10.5); CARBON DIOXIDE 28 mmol/L (22-29); CHLORIDE 98 mmol/L (98-107); CREATININE 1.09 mg/dL (0.60-1.30); GLOMERULAR FILTR. RATE CALC > 60 mL/min (>60); GLUCOSE,RANDOM 82 mg/dL (70-110); SODIUM SERUM 131 mmol/L (136-145); TOTAL PROTEIN, SERUM 7.9 g/dL (6.4-8.2); UREA NITROGEN, BLOOD 12 mg/dL (7-18)
[2017-06-09] MEDS: POTASSIUM CHLORIDE 8 MEQ ER TABLET PO SCH (08:30)
[2017-06-09] MEDS: FUROSEMIDE 40 MG/4 ML VIAL IVP SCH (08:30)
[2017-06-09] MEDS: METOPROLOL SUCCINATE 25 MG ER TABLET PO SCH ×2 (08:30→20:57)
[2017-06-09] MEDS: MULTIVITAMINS WITH MINERALS, THERAPEUTIC TABLET PO SCH (08:30)
[2017-06-09] MEDS: ASPIRIN 81 MG CHEWABLE TABLET PO SCH (08:30)
[2017-06-09] MEDS: PANTOPRAZOLE SODIUM 40 MG/VIAL IVP SCH (08:30)
[2017-06-09] MEDS: LISINOPRIL 5 MG TABLET PO SCH (08:30)
[2017-06-09 09:08] LABS: PLATELET MORPHOLOGY COMMENT NORMAL
[2017-06-09] MEDS ORDERED: INSULIN GLARGINE,HUM.REC.ANLOG 100 UNITS/ML SQ SCH ×2 (10:00→21:00)
[2017-06-09 11:34] VITALS: BP 94/67
[2017-06-09 16:26] VITALS: BP 100/64
[2017-06-09 19:54] VITALS: BP 128/80
[2017-06-09 23:47] VITALS: BP 96/59
[2017-06-10] MEDS: IPRATROPIUM BROMIDE 0.5 MG/2.5 ML NEB SOLUTION NEB SCH ×4 (02:15→20:21)
[2017-06-10 04:19] VITALS: BP 112/56
[2017-06-10 06:59] LABS: HEMATOCRIT 37.9 % (36-46); HEMOGLOBIN 11.4 g/dL (12.0-16.0); MEAN CORPUSCULAR HEMOGLOBIN 23.1 pg (26.0-34.0); MEAN CORPUSCULAR HGB CONC 30.2 G/dL (31.0-37.0); MEAN CORPUSCULAR VOLUME 77 fL (80-100); PLATELET COUNT (AUTO) 240 K/uL (150-450); RED BLOOD CELL COUNT(AUTO) 4.95 MIL/uL (4.00-5.20); RED CELL DISTRIBUTION WIDTH 20.7 % (11.5-14.5)
[2017-06-10 07:02] LABS: ALBUMIN 2.1 g/dL (3.4-5.0); BILIRUBIN,TOTAL 0.8 mg/dL (0.1-1.0); CALCIUM, TOTAL 8.1 mg/dL (8.8-10.5); CREATININE 1.18 mg/dL (0.60-1.30); MAGNESIUM 1.9 mg/dL (1.80-2.40); POTASSIUM 4.5 mmol/L (3.5-5.1); TOTAL PROTEIN, SERUM 7.6 g/dL (6.4-8.2)
[2017-06-10 07:18] VITALS: BP 98/47
[2017-06-10] MEDS: MULTIVITAMINS WITH MINERALS, THERAPEUTIC TABLET PO SCH (08:32)
[2017-06-10] MEDS: POTASSIUM CHLORIDE 8 MEQ ER TABLET PO SCH (08:32)
[2017-06-10] MEDS: ASPIRIN 81 MG CHEWABLE TABLET PO SCH (08:32)
[2017-06-10 08:33] LABS: BAND NEUTROPHILS % (MANUAL) 4 % (1-5); LYMPHOCYTES % (MANUAL) 34 % (22-44); MONOCYTES % (MANUAL) 9 % (2-9); REACTIVE LYMPHOCYTES 7 % (0-0); SEGMENTED NEUTROPHILS % 46 % (40-70)
[2017-06-10] MEDS: FUROSEMIDE 40 MG/4 ML VIAL IVP SCH (08:33)
[2017-06-10] MEDS: PANTOPRAZOLE SODIUM 40 MG/VIAL IVP SCH (08:33)
[2017-06-10] MEDS ORDERED: GuaiFENesin/D-METHORPHAN [SUGAR-FREE] 200-20MG/10 ML SYRUP UDCUP PO PRN (09:15)
[2017-06-10] MEDS: FUROSEMIDE 40 MG TABLET PO SCH (10:02)
[2017-06-10] MEDS: METOPROLOL SUCCINATE 25 MG ER TABLET PO SCH ×2 (10:02→21:04)
[2017-06-10 10:56] VITALS: BP 109/62
[2017-06-10 15:29] VITALS: BP 115/75
[2017-06-10 19:39] VITALS: BP 111/70
[2017-06-10] MEDS: VALSARTAN 40 MG TABLET PO SCH (21:04)
[2017-06-10 23:48] VITALS: BP 112/58
[2017-06-11] MEDS: IPRATROPIUM BROMIDE 0.5 MG/2.5 ML NEB SOLUTION NEB SCH ×3 (01:43→15:34)
[2017-06-11 04:30] VITALS: BP 121/54
[2017-06-11 07:38] VITALS: BP 92/57
[2017-06-11] MEDS: VALSARTAN 40 MG TABLET PO SCH (08:34)
[2017-06-11] MEDS: METOPROLOL SUCCINATE 25 MG ER TABLET PO SCH (08:34)
[2017-06-11] MEDS: MULTIVITAMINS WITH MINERALS, THERAPEUTIC TABLET PO SCH (08:34)
[2017-06-11] MEDS: ASPIRIN 81 MG CHEWABLE TABLET PO SCH (08:34)
[2017-06-11] MEDS: FUROSEMIDE 40 MG TABLET PO SCH (08:34)
[2017-06-11] MEDS: PANTOPRAZOLE SODIUM 40 MG/VIAL IVP SCH (08:35)
[2017-06-11] MEDS: POTASSIUM CHLORIDE 8 MEQ ER TABLET PO SCH (08:35)
[2017-06-11 11:27] VITALS: BP 113/65
[2017-06-11 15:29] VITALS: BP 94/55
[2017-06-11] MEDS ORDERED: FURO40 PO (15:48)
[2017-06-11] MEDS ORDERED: SLOWK8 PO (15:49)
[2017-06-11] MEDS ORDERED: VALS40TA4 PO (15:55)
== END 2017-06-11 18:20 | disposition home or self-care (01) | DRG 194 ==
LOC: EMS 12:56 → 5N 20:30 → 5S 06-07 18:27
PROVIDERS: ADMIT Internal Medicine; ATTEND Internal Medicine
DX: I11.0 Hypertensive heart disease with heart failure (principal); E43 Unspecified severe protein-calorie malnutrition; I42.9 Cardiomyopathy, unspecified; D64.9 Anemia, unspecified; S31.809A Unspecified open wound of unspecified buttock, initial encounter; F14.10 Cocaine abuse, uncomplicated; I50.23 Acute on chronic systolic (congestive) heart failure; E78.00 Pure hypercholesterolemia, unspecified; E78.5 Hyperlipidemia, unspecified; F17.210 Nicotine dependence, cigarettes, uncomplicated; F20.0 Paranoid schizophrenia; J44.9 Chronic obstructive pulmonary disease, unspecified; X58.XXXA Exposure to other specified factors, initial encounter; Z91.14 Patient's other noncompliance with medication regimen; Z91.19 Patient's noncompliance with other medical treatment and regimen; Z88.0 Allergy status to penicillin; Z91.018 Allergy to other foods; Z79.899 Other long term (current) drug therapy; Z79.82 Long term (current) use of aspirin; Z98.51 Tubal ligation status; Z86.19 Personal history of other infectious and parasitic diseases; Z68.24 Body mass index [BMI] 24.0-24.9, adult; Z21 Asymptomatic human immunodeficiency virus [HIV] infection status
CPT/HCPCS: 83735; 86361; 87070; 87081; 87205; 93005; 93306; 94640; 96374; 99285; C9113; J1815; J1940; J2270

== ENCOUNTER 2017-06-27 12:20 | Emergency (ER) | payer OTHER ==
[~2017-06-27] VITALS: Ht 160 cm; Wt 65.5 kg
[~2017-06-27 12:20] MED LIST changes: +ALBU8HFA IH; +ASPI81 PO; -DIPH25 PO; -DSS100 PO; -FERR-89 PO; -FLUD25I IM; +FURO20 PO; +FURO40 PO; -MV-M1TAB2 PO; -OMEP20 PO; -RISP.5 PO; +SLOWK8 PO; +VALS40TA4 PO
[2017-06-27] MEDS ORDERED: ABX PO (12:29)
[2017-06-27 13:45] LABS: BASOPHILS % (AUTO) 1.3 % (0.0-2.0); HEMATOCRIT 36.7 % (36-46); HEMOGLOBIN 11.2 g/dL (12.0-16.0); LYMPHOCYTES # (AUTO) 1.4 K/uL (1.0-4.8); LYMPHOCYTES % (AUTO) 39.7 % (22.0-44.0); MEAN CORPUSCULAR HEMOGLOBIN 22.8 pg (26.0-34.0); MEAN CORPUSCULAR HGB CONC 30.4 G/dL (31.0-37.0); MEAN CORPUSCULAR VOLUME 75 fL (80-100); MONOCYTES # (AUTO) 0.5 K/uL (0.1-1.0); MONOCYTES % (AUTO) 14.6 % (2.0-9.0); NEUTROPHILS # (AUTO) 1.4 K/uL (1.8-7.7); NEUTROPHILS % (AUTO) 40.4 % (40.0-70.0); PLATELET COUNT (AUTO) 241 K/uL (150-450); RED BLOOD CELL COUNT(AUTO) 4.89 MIL/uL (4.00-5.20); RED CELL DISTRIBUTION WIDTH 21.2 % (11.5-14.5)
[2017-06-27 14:02] LABS: ANION GAP 5 mmol/L (8-16); CALCIUM, TOTAL 8.1 mg/dL (8.8-10.5); CARBON DIOXIDE 28 mmol/L (22-29); CHLORIDE 101 mmol/L (98-107); CREATININE 1.01 mg/dL (0.60-1.30); GLOMERULAR FILTR. RATE CALC > 60 mL/min (>60); GLUCOSE,RANDOM 111 mg/dL (70-110); POTASSIUM 4.4 mmol/L (3.5-5.1); SODIUM SERUM 134 mmol/L (136-145); UREA NITROGEN, BLOOD 17 mg/dL (7-18)
[2017-06-27 14:03] LABS: B-TYPE NATRIURETIC PEPTIDE 1570 pg/mL (0-100)
[2017-06-27 14:07] LABS: ALANINE AMINOTRANSFERASE 23 U/L (12-78); ALBUMIN 2.2 g/dL (3.4-5.0); ALKALINE PHOSPHATASE 77 U/L (46-116); ASPARTATE AMINOTRANSFERASE 44 U/L (15-37); BILIRUBIN,TOTAL 0.8 mg/dL (0.1-1.0); TOTAL PROTEIN, SERUM 7.6 g/dL (6.4-8.2)
[2017-06-27 15:24] VITALS: BP 115/78
== END 2017-06-27 15:50 | disposition home or self-care (01) ==
LOC: EMS 12:26
DX: S31.80 Open wound of unspecified buttock (principal); J40 Bronchitis, not specified as acute or chronic; Z21 Asymptomatic human immunodeficiency virus [HIV] infection status; F20.9 Schizophrenia, unspecified; I11.0 Hypertensive heart disease with heart failure; I50.9 Heart failure, unspecified; E78.00 Pure hypercholesterolemia, unspecified; F17.210 Nicotine dependence, cigarettes, uncomplicated; Z88.0 Allergy status to penicillin; Z91.018 Allergy to other foods; Z79.82 Long term (current) use of aspirin; Z79.899 Other long term (current) drug therapy; Z98.890 Other specified postprocedural states; X58.XXXD Exposure to other specified factors, subsequent encounter
CPT/HCPCS: 71046; 93005; 99285

== ENCOUNTER 2017-07-19 23:38 | Emergency (ER) | payer OTHER ==
[~2017-07-19] VITALS: Ht 157.5 cm; Wt 76.0 kg
[~2017-07-19 23:38] MED LIST changes: +ABX PO; -FURO40 PO
[2017-07-20 01:59] VITALS: BP 128/74
== END 2017-07-20 02:09 | disposition home or self-care (01) ==
LOC: EMS 23:40
DX: J40 Bronchitis, not specified as acute or chronic (principal); J45.909 Unspecified asthma, uncomplicated; I11.0 Hypertensive heart disease with heart failure; I50.9 Heart failure, unspecified; E78.00 Pure hypercholesterolemia, unspecified; F17.210 Nicotine dependence, cigarettes, uncomplicated; F19.90 Other psychoactive substance use, unspecified, uncomplicated; F12.90 Cannabis use, unspecified, uncomplicated; F11.90 Opioid use, unspecified, uncomplicated; F14.90 Cocaine use, unspecified, uncomplicated; Z88.0 Allergy status to penicillin; Z91.018 Allergy to other foods; Z79.82 Long term (current) use of aspirin
CPT/HCPCS: 51702; 99283; 99284

== ENCOUNTER 2017-07-20 06:54 | Inpatient (IN) | payer MEDICAID, OTHER ==
[~2017-07-20] VITALS: Ht 160 cm; Wt 65.6 kg
[~2017-07-20 06:54] MED LIST changes: -ABX PO
[2017-07-20] MEDS ORDERED: HALOPERIDOL 5 MG TABLET PO ONE (07:15)
[2017-07-20 07:42] LABS: ANION GAP 6 mmol/L (8-16); CALCIUM, TOTAL 8.3 mg/dL (8.8-10.5); CARBON DIOXIDE 27 mmol/L (22-29); CHLORIDE 103 mmol/L (98-107); CREATININE 0.93 mg/dL (0.60-1.30); GLOMERULAR FILTR. RATE CALC > 60 mL/min (>60); GLUCOSE,RANDOM 81 mg/dL (70-110); POTASSIUM 4.7 mmol/L (3.5-5.1); SODIUM SERUM 136 mmol/L (136-145); UREA NITROGEN, BLOOD 17 mg/dL (7-18)
[2017-07-20 07:43] LABS: BASOPHILS % (AUTO) 1.6 % (0.0-2.0); EOSINOPHILS % (AUTO) 2.1 % (1.0-6.0); LYMPHOCYTES # (AUTO) 3.4 K/uL (1.0-4.8); LYMPHOCYTES % (AUTO) 45.3 % (22.0-44.0); MEAN CORPUSCULAR HEMOGLOBIN 22.9 pg (26.0-34.0); MEAN CORPUSCULAR HGB CONC 29.9 G/dL (31.0-37.0); MEAN CORPUSCULAR VOLUME 77 fL (80-100); MONOCYTES # (AUTO) 1.3 K/uL (0.1-1.0); MONOCYTES % (AUTO) 16.9 % (2.0-9.0); NEUTROPHILS # (AUTO) 2.6 K/uL (1.8-7.7); NEUTROPHILS % (AUTO) 34.1 % (40.0-70.0); RED BLOOD CELL COUNT(AUTO) 5.22 MIL/uL (4.00-5.20); RED CELL DISTRIBUTION WIDTH 21.3 % (11.5-14.5)
[2017-07-20 07:47] LABS: ALANINE AMINOTRANSFERASE 31 U/L (12-78); ALBUMIN 2.8 g/dL (3.4-5.0); ALKALINE PHOSPHATASE 106 U/L (46-116); ASPARTATE AMINOTRANSFERASE 52 U/L (15-37); BILIRUBIN,TOTAL 0.7 mg/dL (0.1-1.0); TOTAL PROTEIN, SERUM 8.5 g/dL (6.4-8.2)
[2017-07-20 08:30] LABS: PLATELET COUNT (AUTO) 289 K/uL (150-450)
[2017-07-20] MEDS ORDERED: LORazepam 2 MG TABLET PO ONE (09:00)
[2017-07-20] MEDS ORDERED: HALOPERIDOL 5 MG TABLET PO PRN (09:15)
[2017-07-20 12:30] VITALS: BP 122/54
[2017-07-20] MEDS ORDERED: INFLUENZA VIRUS VACCINE QVS 2017-18 (3YR+)/PF 60 MCG/0.5 ML SYRINGE IM ONE (15:15)
[2017-07-21 06:01] VITALS: BP 115/58
[2017-07-21 08:23] VITALS: BP 124/86
[2017-07-21] MEDS ORDERED: CloNIDine HCL 0.1 MG TABLET PO PRN (09:30)
[2017-07-21] MEDS: FUROSEMIDE 20 MG TABLET PO SCH (09:30)
[2017-07-21] MEDS: MUPIROCIN CALCIUM 2% 15 GM CREAM TP SCH ×2 (09:30→17:00)
[2017-07-21] MEDS ORDERED: BENZOCAINE/MENTHOL LOZENGE MM PRN (09:30)
[2017-07-21] MEDS ORDERED: BACITRACIN 28.4 GM OINTMENT TP PRN (09:30)
[2017-07-21] MEDS ORDERED: ONDANSETRON HCL 4 MG TABLET PO PRN (09:30)
[2017-07-21] MEDS ORDERED: IBUPROFEN 600 MG TABLET PO PRN (09:30)
[2017-07-21] MEDS ORDERED: LOPERAMIDE HCL 2 MG CAPSULE PO PRN (09:30)
[2017-07-21] MEDS ORDERED: ACETAMINOPHEN 325 MG TABLET PO PRN (09:30)
[2017-07-21] MEDS ORDERED: PETROLATUM,WHITE 71 GM JELLY TP PRN (09:30)
[2017-07-21] MEDS ORDERED: MAG HYDROX/AL HYDROX/SIMETH ES 30 ML SUSPENSION UDCUP PO PRN (09:30)
[2017-07-21] MEDS ORDERED: MAGNESIUM HYDROXIDE SUSPENSION 30 ML UDCUP PO PRN (09:30)
[2017-07-21 16:07] VITALS: BP 130/72
[2017-07-21] MEDS: VALSARTAN 40 MG TABLET PO SCH (16:47)
[2017-07-21] MEDS: FluPHENAZine HCL 5 MG TABLET PO SCH (16:48)
[2017-07-21] MEDS: POTASSIUM CHLORIDE 8 MEQ ER TABLET PO SCH (16:48)
[2017-07-21 18:41] VITALS: BP 122/55
[2017-07-22 00:10] VITALS: BP 128/76
[2017-07-22] MEDS: ZOLPIDEM TARTRATE 10 MG TABLET PO PRN (00:12)
[2017-07-22 08:15] VITALS: BP 109/72
[2017-07-22] MEDS: VALSARTAN 40 MG TABLET PO SCH (10:36)
[2017-07-22] MEDS: ASPIRIN 81 MG CHEWABLE TABLET PO SCH (10:36)
[2017-07-22] MEDS: FUROSEMIDE 20 MG TABLET PO SCH (10:36)
[2017-07-22] MEDS: DOCUSATE SODIUM 100 MG CAPSULE PO SCH (10:37)
[2017-07-22] MEDS: FluPHENAZine HCL 5 MG TABLET PO SCH ×2 (10:37→16:13)
[2017-07-22] MEDS: MUPIROCIN CALCIUM 2% 15 GM CREAM TP SCH ×2 (10:38→20:46)
[2017-07-22] MEDS: POTASSIUM CHLORIDE 8 MEQ ER TABLET PO SCH (10:38)
[2017-07-22] MEDS: OMEPRAZOLE 20 MG CAPSULE PO SCH (10:38)
[2017-07-22 18:00] VITALS: BP 118/77
[2017-07-23 00:10] VITALS: BP 120/76
[2017-07-23] MEDS: ZOLPIDEM TARTRATE 10 MG TABLET PO PRN (00:15)
[2017-07-23 07:05] LABS: CHOL/HDL RATIO 6.2 (3.9-5.7); CHOLESTEROL 105 mg/dL (131-200); HCG,QUANTITATIVE < 1 mIU/mL (0-6); HDL CHOLESTEROL 17 mg/dL (40-60); LDL CHOL (CALC.) 76 mg/dL (0-130); TRIGLYCERIDES 58 mg/dL (15-150)
[2017-07-23] MEDS: OMEPRAZOLE 20 MG CAPSULE PO SCH (10:21)
[2017-07-23] MEDS: FluPHENAZine HCL 5 MG TABLET PO SCH ×2 (10:22→17:37)
[2017-07-23] MEDS: MUPIROCIN CALCIUM 2% 15 GM CREAM TP SCH ×2 (10:22→17:00)
[2017-07-23] MEDS: FUROSEMIDE 20 MG TABLET PO SCH (10:22)
[2017-07-23] MEDS: ASPIRIN 81 MG CHEWABLE TABLET PO SCH (10:22)
[2017-07-23] MEDS: POTASSIUM CHLORIDE 8 MEQ ER TABLET PO SCH (10:22)
[2017-07-23] MEDS: DOCUSATE SODIUM 100 MG CAPSULE PO SCH (10:22)
[2017-07-23 12:31] VITALS: BP 117/56
[2017-07-23] MEDS: VALSARTAN 40 MG TABLET PO SCH (12:33)
[2017-07-23 19:30] VITALS: BP 124/78
[2017-07-23] MEDS: LORazepam 2 MG TABLET PO PRN (23:34)
[2017-07-24 00:05] VITALS: BP 164/70
[2017-07-24] MEDS: POTASSIUM CHLORIDE 8 MEQ ER TABLET PO SCH (09:49)
[2017-07-24] MEDS: FUROSEMIDE 20 MG TABLET PO SCH (09:49)
[2017-07-24] MEDS: DOCUSATE SODIUM 100 MG CAPSULE PO SCH (09:49)
[2017-07-24] MEDS: VALSARTAN 40 MG TABLET PO SCH (09:49)
[2017-07-24] MEDS: ASPIRIN 81 MG CHEWABLE TABLET PO SCH (09:52)
[2017-07-24] MEDS: FluPHENAZine HCL 5 MG TABLET PO SCH ×2 (09:52→17:09)
[2017-07-24] MEDS: MUPIROCIN CALCIUM 2% 15 GM CREAM TP SCH ×2 (09:52→17:00)
[2017-07-24] MEDS: OMEPRAZOLE 20 MG CAPSULE PO SCH (09:53)
[2017-07-24 10:10] VITALS: BP 117/79
[2017-07-24] MEDS ORDERED: FURO40 PO (14:00)
[2017-07-24 16:15] VITALS: BP 102/52
[2017-07-25 00:15] VITALS: BP 119/88
[2017-07-25] MEDS: LORazepam 2 MG TABLET PO PRN (00:29)
[2017-07-25 05:00] VITALS: BP 116/71
[2017-07-25] MEDS: ALBUTEROL SULFATE HFA 90 MCG/PUFF 8 GM INHALER IH PRN (05:30)
[2017-07-25 08:00] VITALS: BP 117/76
[2017-07-25] MEDS: OMEPRAZOLE 20 MG CAPSULE PO SCH (10:35)
[2017-07-25] MEDS: VALSARTAN 40 MG TABLET PO SCH (10:35)
[2017-07-25] MEDS: POTASSIUM CHLORIDE 8 MEQ ER TABLET PO SCH (10:35)
[2017-07-25] MEDS: ASPIRIN 81 MG CHEWABLE TABLET PO SCH (10:35)
[2017-07-25] MEDS: FUROSEMIDE 20 MG TABLET PO SCH (10:35)
[2017-07-25] MEDS: DOCUSATE SODIUM 100 MG CAPSULE PO SCH (10:35)
[2017-07-25] MEDS: MULTIVITAMINS WITH MINERALS, THERAPEUTIC TABLET PO SCH (10:35)
[2017-07-25] MEDS: MUPIROCIN CALCIUM 2% 15 GM CREAM TP SCH ×2 (10:36→16:49)
[2017-07-25] MEDS: FluPHENAZine HCL 5 MG TABLET PO SCH ×2 (10:48→16:49)
[2017-07-25 16:15] VITALS: BP 131/75
[2017-07-26 01:29] VITALS: BP 132/82
[2017-07-26] MEDS: ZOLPIDEM TARTRATE 10 MG TABLET PO PRN (01:55)
[2017-07-26] MEDS: LORazepam 2 MG TABLET PO PRN (01:56)
[2017-07-26 09:00] VITALS: BP 118/75
[2017-07-26] MEDS: MULTIVITAMINS WITH MINERALS, THERAPEUTIC TABLET PO SCH (09:22)
[2017-07-26] MEDS: DOCUSATE SODIUM 100 MG CAPSULE PO SCH (09:22)
[2017-07-26] MEDS: ASPIRIN 81 MG CHEWABLE TABLET PO SCH (09:22)
[2017-07-26] MEDS: POTASSIUM CHLORIDE 8 MEQ ER TABLET PO SCH (09:22)
[2017-07-26] MEDS: FUROSEMIDE 20 MG TABLET PO SCH (09:23)
[2017-07-26] MEDS: MUPIROCIN CALCIUM 2% 15 GM CREAM TP SCH ×2 (09:23→17:55)
[2017-07-26] MEDS: FluPHENAZine HCL 5 MG TABLET PO SCH ×2 (09:23→17:09)
[2017-07-26] MEDS: OMEPRAZOLE 20 MG CAPSULE PO SCH (09:23)
[2017-07-26] MEDS: VALSARTAN 40 MG TABLET PO SCH (09:23)
[2017-07-26 16:56] VITALS: BP 117/84
[2017-07-27] MEDS: ALBUTEROL SULFATE HFA 90 MCG/PUFF 8 GM INHALER IH PRN (03:52)
[2017-07-27 08:00] VITALS: BP 128/88
[2017-07-27] MEDS: FUROSEMIDE 20 MG TABLET PO SCH (09:39)
[2017-07-27] MEDS: ASPIRIN 81 MG CHEWABLE TABLET PO SCH (09:39)
[2017-07-27] MEDS: FluPHENAZine HCL 5 MG TABLET PO SCH ×2 (09:39→16:08)
[2017-07-27] MEDS: VALSARTAN 40 MG TABLET PO SCH (09:39)
[2017-07-27] MEDS: POTASSIUM CHLORIDE 8 MEQ ER TABLET PO SCH (09:39)
[2017-07-27] MEDS: OMEPRAZOLE 20 MG CAPSULE PO SCH (09:39)
[2017-07-27] MEDS: DOCUSATE SODIUM 100 MG CAPSULE PO SCH (09:39)
[2017-07-27] MEDS: MULTIVITAMINS WITH MINERALS, THERAPEUTIC TABLET PO SCH (09:40)
[2017-07-27] MEDS: MUPIROCIN CALCIUM 2% 15 GM CREAM TP SCH ×2 (09:40→16:07)
[2017-07-27] MEDS ORDERED: FLUP5 PO (13:29)
[2017-07-27] MEDS ORDERED: DSS100 PO (13:31)
[2017-07-27] MEDS ORDERED: MULT-1203 PO (13:35)
[2017-07-27] MEDS ORDERED: MUPI15CR TP (13:36)
[2017-07-27] MEDS ORDERED: OMEP20 PO (13:38)
== END 2017-07-27 18:30 | disposition home health service (06) | DRG 751 ==
LOC: EMS 06:56 → B3A 10:18 → 3EI 07-21 16:54
PROVIDERS: ADMIT Psychiatry & Neurology Psychiatry; ATTEND Psychiatry & Neurology Psychiatry
DX: F29 Unspecified psychosis not due to a substance or known physiological condition (principal); I11.0 Hypertensive heart disease with heart failure; I50.22 Chronic systolic (congestive) heart failure; R45.851 Suicidal ideations; F14.10 Cocaine abuse, uncomplicated; E78.00 Pure hypercholesterolemia, unspecified; F15.10 Other stimulant abuse, uncomplicated; F17.200 Nicotine dependence, unspecified, uncomplicated; G47.00 Insomnia, unspecified; J44.9 Chronic obstructive pulmonary disease, unspecified; Z20.6 Contact with and (suspected) exposure to human immunodeficiency virus [HIV]; K46.9 Unspecified abdominal hernia without obstruction or gangrene; F17.210 Nicotine dependence, cigarettes, uncomplicated; F79 Unspecified intellectual disabilities; L98.499 Non-pressure chronic ulcer of skin of other sites with unspecified severity; Z71.6 Tobacco abuse counseling; Z91.19 Patient's noncompliance with other medical treatment and regimen; Z98.51 Tubal ligation status; Z88.0 Allergy status to penicillin; Z91.048 Other nonmedicinal substance allergy status; Z79.82 Long term (current) use of aspirin; Z79.899 Other long term (current) drug therapy; Z81.8 Family history of other mental and behavioral disorders
CPT/HCPCS: 86361; 87081; 99285; G0480; J3535

== ENCOUNTER 2017-07-20 15:19 | Emergency (ER) | payer MEDICAID, OTHER ==
[~2017-07-20] VITALS: Ht 162.6 cm; Wt 56.8 kg
[~2017-07-20 15:19] MED LIST changes: +ABX PO
[2017-07-21 04:25] VITALS: BP 113/69
== END 2017-07-21 05:28 | disposition home or self-care (01) ==
LOC: EMS 15:23 → EEVIPCON 15:23 → EMS 07-21 05:28
DX: S30.91XA Unspecified superficial injury of lower back and pelvis, initial encounter (principal); E78.00 Pure hypercholesterolemia, unspecified; F20.9 Schizophrenia, unspecified; F31.9 Bipolar disorder, unspecified; I11.0 Hypertensive heart disease with heart failure; I50.9 Heart failure, unspecified; J45.909 Unspecified asthma, uncomplicated; Z79.82 Long term (current) use of aspirin; Z88.0 Allergy status to penicillin; X58.XXXA Exposure to other specified factors, initial encounter; Y93.89 Activity, other specified; Y92.89 Other specified places as the place of occurrence of the external cause; Y99.8 Other external cause status; Z91.018 Allergy to other foods
CPT/HCPCS: 99283

== ENCOUNTER 2017-10-03 01:13 | Emergency (ER) | payer MEDICAID, OTHER ==
[~2017-10-03] VITALS: Ht 165.1 cm; Wt 79.2 kg
[~2017-10-03 01:13] MED LIST changes: -ABX PO; -ALBU8HFA IH; -ASPI81 PO; +FLUD25I IM; +FLUP2.5 PO; +FLUP5 PO; -FURO20 PO; +LISI-661 PO; -SLOWK8 PO; -VALS40TA4 PO
[2017-10-03 05:26] LABS: BASOPHILS % (AUTO) 1.3 % (0.0-2.0); HEMATOCRIT 35.5 % (36-46); HEMOGLOBIN 10.9 g/dL (12.0-16.0); LYMPHOCYTES # (AUTO) 1.4 K/uL (1.0-4.8); MEAN CORPUSCULAR HEMOGLOBIN 22.1 pg (26.0-34.0); MEAN CORPUSCULAR HGB CONC 30.8 G/dL (31.0-37.0); MEAN CORPUSCULAR VOLUME 72 fL (80-100); MONOCYTES # (AUTO) 0.6 K/uL (0.1-1.0); MONOCYTES % (AUTO) 15.1 % (2.0-9.0); NEUTROPHILS # (AUTO) 1.7 K/uL (1.8-7.7); NEUTROPHILS % (AUTO) 44.6 % (40.0-70.0); PLATELET COUNT (AUTO) 230 K/uL (150-450); RED BLOOD CELL COUNT(AUTO) 4.94 MIL/uL (4.00-5.20); RED CELL DISTRIBUTION WIDTH 21.2 % (11.5-14.5)
[2017-10-03 05:28] LABS: ANION GAP 5 mmol/L (8-16); CALCIUM, TOTAL 8.4 mg/dL (8.8-10.5); CARBON DIOXIDE 25 mmol/L (22-29); CHLORIDE 104 mmol/L (98-107); CREATININE 1.25 mg/dL (0.60-1.30); GLOMERULAR FILTR. RATE CALC 56 mL/min (>60); GLUCOSE,RANDOM 69 mg/dL (70-110); POTASSIUM 5.3 mmol/L (3.5-5.1); SODIUM SERUM 134 mmol/L (136-145); UREA NITROGEN, BLOOD 23 mg/dL (7-18)
[2017-10-03 05:36] LABS: ALANINE AMINOTRANSFERASE 40 U/L (12-78); ALBUMIN 2.7 g/dL (3.4-5.0); ALKALINE PHOSPHATASE 136 U/L (46-116); ASPARTATE AMINOTRANSFERASE 72 U/L (15-37); BILIRUBIN,TOTAL 2.1 mg/dL (0.1-1.0); TOTAL PROTEIN, SERUM 9.1 g/dL (6.4-8.2)
[2017-10-03] MEDS ORDERED: IBUPROFEN 600 MG TABLET PO ONE (06:15)
[2017-10-03 09:30] VITALS: BP 112/78
== END 2017-10-03 09:32 | disposition home or self-care (01) ==
LOC: EMS 01:15
DX: R07.89 Other chest pain (principal); F20.0 Paranoid schizophrenia; J45.909 Unspecified asthma, uncomplicated; I11.0 Hypertensive heart disease with heart failure; I50.9 Heart failure, unspecified; E78.00 Pure hypercholesterolemia, unspecified; F17.210 Nicotine dependence, cigarettes, uncomplicated; F12.90 Cannabis use, unspecified, uncomplicated; F19.90 Other psychoactive substance use, unspecified, uncomplicated; F14.90 Cocaine use, unspecified, uncomplicated; F11.90 Opioid use, unspecified, uncomplicated; Z88.0 Allergy status to penicillin; Z91.018 Allergy to other foods
CPT/HCPCS: 36415; 71045; 71250; 80053; 85025; 93005; 99285; 99406; G0480

== ENCOUNTER 2017-10-11 15:59 | Inpatient (IN) | payer MEDICAID ==
[~2017-10-11] VITALS: Ht 160 cm; Wt 66.7 kg
[2017-10-11] MEDS ORDERED: QUEtiapine FUMARATE 100 MG TABLET PO PRN (16:30)
[2017-10-11] MEDS ORDERED: ZOLPIDEM TARTRATE 10 MG TABLET PO PRN (16:30)
[2017-10-11] MEDS ORDERED: PNEUMOCOCCAL VACCINE POLYVALENT 0.5 ML VIAL [PPSV23] IM ONE (16:45)
[2017-10-11 16:49] VITALS: BP 103/63
[2017-10-11] MEDS: DiphenhydrAMINE HCL 25 MG CAPSULE PO SCH (20:43)
[2017-10-11] MEDS: FluPHENAZine HCL 5 MG TABLET PO SCH (20:44)
[2017-10-12 00:10] VITALS: BP 132/79
[2017-10-12] MEDS ORDERED: MAG HYDROX/AL HYDROX/SIMETH ES 30 ML SUSPENSION UDCUP PO PRN (05:00)
[2017-10-12] MEDS ORDERED: BACITRACIN 28.4 GM OINTMENT TP PRN (05:00)
[2017-10-12] MEDS ORDERED: MAGNESIUM HYDROXIDE SUSPENSION 30 ML UDCUP PO PRN (05:00)
[2017-10-12] MEDS ORDERED: PETROLATUM,WHITE 71 GM JELLY TP PRN (05:00)
[2017-10-12] MEDS ORDERED: CloNIDine HCL 0.1 MG TABLET PO PRN (05:00)
[2017-10-12] MEDS ORDERED: ONDANSETRON HCL 4 MG TABLET PO PRN (05:00)
[2017-10-12] MEDS ORDERED: BENZOCAINE/MENTHOL LOZENGE MM PRN (05:00)
[2017-10-12] MEDS ORDERED: IBUPROFEN 600 MG TABLET PO PRN (05:00)
[2017-10-12] MEDS ORDERED: ACETAMINOPHEN 325 MG TABLET PO PRN (05:00)
[2017-10-12] MEDS ORDERED: LOPERAMIDE HCL 2 MG CAPSULE PO PRN (05:00)
[2017-10-12 05:39] VITALS: BP 121/86
[2017-10-12 08:32] VITALS: BP 100/60
[2017-10-12] MEDS: DOCUSATE SODIUM 100 MG CAPSULE PO SCH ×2 (08:44→09:56)
[2017-10-12] MEDS: OMEPRAZOLE 20 MG CAPSULE PO SCH ×2 (08:44→09:56)
[2017-10-12 09:22] LABS: HEMOGLOBIN A1C 5.8 % (4.5-6.2)
[2017-10-12 09:31] LABS: BASOPHILS % (AUTO) 1.2 % (0.0-2.0); EOSINOPHILS % (AUTO) 1.1 % (1.0-6.0); HEMATOCRIT 37.1 % (36-46); HEMOGLOBIN 11.4 g/dL (12.0-16.0); LYMPHOCYTES # (AUTO) 1.8 K/uL (1.0-4.8); LYMPHOCYTES % (AUTO) 41.2 % (22.0-44.0); MEAN CORPUSCULAR HEMOGLOBIN 22.1 pg (26.0-34.0); MEAN CORPUSCULAR HGB CONC 30.6 G/dL (31.0-37.0); MEAN CORPUSCULAR VOLUME 72 fL (80-100); MONOCYTES # (AUTO) 0.7 K/uL (0.1-1.0); MONOCYTES % (AUTO) 16.3 % (2.0-9.0); NEUTROPHILS # (AUTO) 1.7 K/uL (1.8-7.7); NEUTROPHILS % (AUTO) 40.2 % (40.0-70.0); PLATELET COUNT (AUTO) 296 K/uL (150-450); RED BLOOD CELL COUNT(AUTO) 5.13 MIL/uL (4.00-5.20)
[2017-10-12 10:04] LABS: PLATELET MORPHOLOGY COMMENT GIANT PLTS PRESENT
[2017-10-12 11:08] LABS: ALBUMIN 2.6 g/dL (3.4-5.0); BILIRUBIN,TOTAL 1.3 mg/dL (0.1-1.0); CALCIUM, TOTAL 7.7 mg/dL (8.8-10.5); CHOL/HDL RATIO 7.6 (3.9-5.7); CREATININE 1.3 mg/dL (0.60-1.30); FREE T4 (FREE THYROXINE) 1.24 ng/dL (0.76-1.46); POTASSIUM 4.6 mmol/L (3.5-5.1); THYROID STIMULATING HORMONE 1.94 uIU/mL (0.36-3.74); TOTAL PROTEIN, SERUM 8.9 g/dL (6.4-8.2)
[2017-10-12] MEDS ORDERED: ZINC OXIDE 16% PASTE 57 GM TUBE TP PRN (12:45)
[2017-10-12 16:29] VITALS: BP 106/64
[2017-10-12] MEDS: ZINC OXIDE 16% PASTE 57 GM TUBE TP SCH (16:36)
[2017-10-12] MEDS: DiphenhydrAMINE HCL 25 MG CAPSULE PO SCH (20:22)
[2017-10-12] MEDS: FluPHENAZine HCL 5 MG TABLET PO SCH (20:22)
[2017-10-13] VITALS: BP 100/61
[2017-10-13] MEDS: ALBUTEROL SULFATE HFA 90 MCG/PUFF 8 GM INHALER IH PRN ×3 (00:38→20:32)
[2017-10-13 08:16] VITALS: BP 105/72
[2017-10-13] MEDS: DOCUSATE SODIUM 100 MG CAPSULE PO SCH (09:00)
[2017-10-13] MEDS: OMEPRAZOLE 20 MG CAPSULE PO SCH (09:00)
[2017-10-13] MEDS: ZINC OXIDE 16% PASTE 57 GM TUBE TP SCH (09:00)
[2017-10-13] MEDS: CHOLECALCIFEROL (VIT D3) 1,000 UNITS TABLET PO SCH (09:00)
[2017-10-13 14:20] VITALS: BP 125/63
[2017-10-13] MEDS: LORazepam 1 MG TABLET PO PRN (14:22)
[2017-10-13] MEDS: ALBUTEROL SULFATE 2.5 MG/0.5 ML NEB SOLUTION NEB PRN (14:31)
[2017-10-13] MEDS: IPRATROPIUM BROMIDE 0.5 MG/2.5 ML NEB SOLUTION NEB PRN ×2 (14:31→20:55)
[2017-10-13 15:12] LABS: GLUCOMETER DEV NAME(LOC) BV2S 2; GLUCOSE,POINT OF CARE 125 MG/DL (70-110)
[2017-10-13 16:00] VITALS: BP 108/78
[2017-10-13] MEDS: FluPHENAZine HCL 5 MG TABLET PO SCH (20:43)
[2017-10-13] MEDS: DiphenhydrAMINE HCL 25 MG CAPSULE PO SCH (20:43)
[2017-10-13 21:15] VITALS: BP 116/80
[2017-10-14] MEDS: ALBUTEROL SULFATE 2.5 MG/0.5 ML NEB SOLUTION NEB PRN ×2 (00:04→15:40)
[2017-10-14 00:35] VITALS: BP 120/81
[2017-10-14 07:35] VITALS: BP 124/86
[2017-10-14] MEDS: CHOLECALCIFEROL (VIT D3) 1,000 UNITS TABLET PO SCH (08:32)
[2017-10-14] MEDS: ZINC OXIDE 16% PASTE 57 GM TUBE TP SCH (08:32)
[2017-10-14] MEDS: DOCUSATE SODIUM 100 MG CAPSULE PO SCH (08:32)
[2017-10-14] MEDS: OMEPRAZOLE 20 MG CAPSULE PO SCH (08:32)
[2017-10-14 08:42] VITALS: BP 123/89
[2017-10-14] MEDS: ALBUTEROL SULFATE HFA 90 MCG/PUFF 8 GM INHALER IH PRN (14:42)
[2017-10-14] MEDS: IPRATROPIUM BROMIDE 0.5 MG/2.5 ML NEB SOLUTION NEB PRN (15:40)
[2017-10-14 16:26] VITALS: BP 120/68
[2017-10-14] MEDS: FluPHENAZine HCL 5 MG TABLET PO SCH (20:22)
[2017-10-14] MEDS: DiphenhydrAMINE HCL 25 MG CAPSULE PO SCH (20:22)
[2017-10-15] MEDS: ALBUTEROL SULFATE 2.5 MG/0.5 ML NEB SOLUTION NEB PRN (01:03)
[2017-10-15 01:41] VITALS: BP 122/82
[2017-10-15] MEDS: LORazepam 1 MG TABLET PO PRN (04:32)
[2017-10-15] MEDS ORDERED: FluPHENAZine DECANOATE 25 MG/ML IM SCH (09:00)
[2017-10-15] MEDS: CHOLECALCIFEROL (VIT D3) 1,000 UNITS TABLET PO SCH (09:39)
[2017-10-15] MEDS: DOCUSATE SODIUM 100 MG CAPSULE PO SCH (09:39)
[2017-10-15] MEDS: ZINC OXIDE 16% PASTE 57 GM TUBE TP SCH (09:39)
[2017-10-15] MEDS: OMEPRAZOLE 20 MG CAPSULE PO SCH (09:39)
[2017-10-15] MEDS ORDERED: LISINOPRIL 10 MG TABLET PO SCH (09:45)
[2017-10-15] MEDS ORDERED: CARVEDILOL 25 MG TABLET PO SCH (09:45)
[2017-10-15 10:17] VITALS: BP 105/60
[2017-10-15] MEDS ORDERED: FLUP5 PO (15:33)
[2017-10-15] MEDS ORDERED: FLUD25I IM (15:33)
[2017-10-15] MEDS ORDERED: DIPH25 PO (15:33)
[2017-10-15 16:10] VITALS: BP 121/76
[2017-10-15] MEDS ORDERED: CARVEDILOL 3.125 MG TABLET PO SCH (17:00)
[2017-10-16] MEDS ORDERED: LISINOPRIL 10 MG TABLET PO SCH (09:00)
== END 2017-10-15 18:24 | disposition home or self-care (01) | DRG 750 ==
LOC: B2S 16:30
PROVIDERS: ADMIT Psychiatry & Neurology Psychiatry; ATTEND Psychiatry & Neurology Psychiatry
DX: F20.0 Paranoid schizophrenia (principal); I11.0 Hypertensive heart disease with heart failure; I50.20 Unspecified systolic (congestive) heart failure; R45.851 Suicidal ideations; E55.9 Vitamin D deficiency, unspecified; F79 Unspecified intellectual disabilities; D64.9 Anemia, unspecified; F32.9 Major depressive disorder, single episode, unspecified; G47.00 Insomnia, unspecified; K21.9 Gastro-esophageal reflux disease without esophagitis; Z91.14 Patient's other noncompliance with medication regimen; Z91.19 Patient's noncompliance with other medical treatment and regimen; Z98.51 Tubal ligation status; Z28.21 Immunization not carried out because of patient refusal
CPT/HCPCS: 83036; 84439; 84443; 87081; J2680; J3535

== ENCOUNTER 2018-01-01 18:52 | Inpatient (IN) | payer MEDICAID ==
[~2018-01-01] VITALS: Ht 160 cm; Wt 68.2 kg
[~2018-01-01 18:52] MED LIST changes: +ALBU8.5H8 IH; +ARIP10TA8 PO; +CARV12 PO; -FLUD25I IM; +FURO40 PO
[2018-01-01] MEDS ORDERED: LORazepam 1 MG TABLET PO PRN (20:15)
[2018-01-01] MEDS ORDERED: ZOLPIDEM TARTRATE 10 MG TABLET PO PRN (20:15)
[2018-01-01 20:19] VITALS: BP 120/80
[2018-01-01] MEDS: FluPHENAZine HCL 5 MG TABLET PO SCH (20:53)
[2018-01-01 20:57] VITALS: BP 115/81
[2018-01-01] MEDS ORDERED: PNEUMOCOCCAL VACCINE POLYVALENT 0.5 ML VIAL [PPSV23] IM ONE (21:15)
[2018-01-01] MEDS ORDERED: BACITRACIN 28.4 GM OINTMENT TP PRN (21:45)
[2018-01-01] MEDS ORDERED: BENZOCAINE/MENTHOL LOZENGE MM PRN (21:45)
[2018-01-01] MEDS ORDERED: PETROLATUM,WHITE 71 GM JELLY TP PRN (21:45)
[2018-01-01] MEDS ORDERED: LOPERAMIDE HCL 2 MG CAPSULE PO PRN (21:45)
[2018-01-01] MEDS ORDERED: ONDANSETRON HCL 4 MG TABLET PO PRN (21:45)
[2018-01-01] MEDS ORDERED: IBUPROFEN 600 MG TABLET PO PRN (21:45)
[2018-01-01] MEDS ORDERED: MAG HYDROX/AL HYDROX/SIMETH ES 30 ML SUSPENSION UDCUP PO PRN (21:45)
[2018-01-01] MEDS ORDERED: MAGNESIUM HYDROXIDE SUSPENSION 30 ML UDCUP PO PRN (21:45)
[2018-01-01] MEDS ORDERED: CloNIDine HCL 0.1 MG TABLET PO PRN (21:45)
[2018-01-01] MEDS ORDERED: ACETAMINOPHEN 325 MG TABLET PO PRN (21:45)
[2018-01-01] MEDS ORDERED: ALBUTEROL SULFATE HFA 90 MCG/PUFF 8 GM INHALER IH PRN (21:45)
[2018-01-02 02:00] VITALS: BP 113/83
[2018-01-02 08:15] VITALS: BP 100/60
[2018-01-02 09:22] VITALS: BP 112/73
[2018-01-02] MEDS: BusPIRone HCL 5 MG TABLET PO SCH ×2 (09:24→16:27)
[2018-01-02] MEDS: DOCUSATE SODIUM 100 MG CAPSULE PO SCH (09:24)
[2018-01-02] MEDS: CARVEDILOL 12.5 MG TABLET PO SCH (09:24)
[2018-01-02] MEDS: OMEPRAZOLE 20 MG CAPSULE PO SCH (09:25)
[2018-01-02] MEDS: GABAPENTIN 300 MG CAPSULE PO SCH ×2 (09:25→16:27)
[2018-01-02] MEDS: LISINOPRIL 10 MG TABLET PO SCH (09:25)
[2018-01-02] MEDS: FUROSEMIDE 40 MG TABLET PO SCH ×2 (09:25→16:27)
[2018-01-02] MEDS: FluPHENAZine HCL 5 MG TABLET PO SCH (20:14)
[2018-01-02 20:30] VITALS: BP 104/74
[2018-01-03 05:55] VITALS: BP 110/68
[2018-01-03 08:43] LABS: BASOPHILS % (AUTO) 0.2 % (0.0-2.0); EOSINOPHILS % (AUTO) 8.4 % (1.0-6.0); HEMATOCRIT 38.2 % (36-46); HEMOGLOBIN 11.4 g/dL (12.0-16.0); LYMPHOCYTES # (AUTO) 1.9 K/uL (1.0-4.8); LYMPHOCYTES % (AUTO) 41.2 % (22.0-44.0); MEAN CORPUSCULAR HEMOGLOBIN 21.6 pg (26.0-34.0); MEAN CORPUSCULAR HGB CONC 29.9 G/dL (31.0-37.0); MEAN CORPUSCULAR VOLUME 72 fL (80-100); MONOCYTES # (AUTO) 0.7 K/uL (0.1-1.0); NEUTROPHILS # (AUTO) 1.7 K/uL (1.8-7.7); NEUTROPHILS % (AUTO) 35.2 % (40.0-70.0); PLATELET COUNT (AUTO) 326 K/uL (150-450); RED BLOOD CELL COUNT(AUTO) 5.29 MIL/uL (4.00-5.20)
[2018-01-03 09:03] LABS: HEMOGLOBIN A1C 5.9 % (4.5-6.2)
[2018-01-03] MEDS: LISINOPRIL 10 MG TABLET PO SCH (09:03)
[2018-01-03] MEDS: BusPIRone HCL 5 MG TABLET PO SCH ×2 (09:03→16:17)
[2018-01-03] MEDS: CARVEDILOL 12.5 MG TABLET PO SCH (09:03)
[2018-01-03] MEDS: GABAPENTIN 300 MG CAPSULE PO SCH ×2 (09:03→16:17)
[2018-01-03] MEDS: OMEPRAZOLE 20 MG CAPSULE PO SCH (09:03)
[2018-01-03] MEDS: FUROSEMIDE 40 MG TABLET PO SCH ×2 (09:04→16:17)
[2018-01-03] MEDS: DOCUSATE SODIUM 100 MG CAPSULE PO SCH (09:04)
[2018-01-03 09:11] VITALS: BP 118/74
[2018-01-03 09:24] LABS: ALANINE AMINOTRANSFERASE 17 U/L (12-78); ALBUMIN 2.2 g/dL (3.4-5.0); ALKALINE PHOSPHATASE 123 U/L (46-116); ANION GAP 7 mmol/L (8-16); ASPARTATE AMINOTRANSFERASE 43 U/L (15-37); CALCIUM, TOTAL 8.1 mg/dL (8.8-10.5); CARBON DIOXIDE 28 mmol/L (22-29); CHLORIDE 104 mmol/L (98-107); CREATININE 1.07 mg/dL (0.60-1.30); FREE T4 (FREE THYROXINE) 1.26 ng/dL (0.76-1.46); GLOMERULAR FILTR. RATE CALC > 60 mL/min (>60); GLUCOSE,RANDOM 59 mg/dL (70-110); HDL CHOLESTEROL 16 mg/dL (40-60); POTASSIUM 4.5 mmol/L (3.5-5.1); SODIUM SERUM 139 mmol/L (136-145); THYROID STIMULATING HORMONE 2.18 uIU/mL (0.36-3.74); TOTAL PROTEIN, SERUM 8.8 g/dL (6.4-8.2); TRIGLYCERIDES 69 mg/dL (15-150); UREA NITROGEN, BLOOD 18 mg/dL (7-18)
[2018-01-03 09:37] LABS: CHOL/HDL RATIO 7.9 (3.9-5.7); CHOLESTEROL 126 mg/dL (131-200); LDL CHOL (CALC.) 96 mg/dL (0-130)
[2018-01-03 16:15] VITALS: BP 104/66
[2018-01-03] MEDS ORDERED: GuaiFENesin [SUGAR-FREE] 200 MG/10 ML SOLUTION UDCUP PO PRN (17:45)
[2018-01-03] MEDS: FluPHENAZine HCL 5 MG TABLET PO SCH (20:07)
[2018-01-04 02:34] VITALS: BP 110/68
[2018-01-04 08:13] VITALS: BP 112/78
[2018-01-04] MEDS: LISINOPRIL 10 MG TABLET PO SCH (08:44)
[2018-01-04] MEDS: BusPIRone HCL 5 MG TABLET PO SCH ×2 (08:44→16:27)
[2018-01-04] MEDS: OMEPRAZOLE 20 MG CAPSULE PO SCH (08:44)
[2018-01-04] MEDS: DOCUSATE SODIUM 100 MG CAPSULE PO SCH (08:44)
[2018-01-04] MEDS: CARVEDILOL 12.5 MG TABLET PO SCH (08:44)
[2018-01-04] MEDS: GABAPENTIN 300 MG CAPSULE PO SCH ×2 (08:44→16:27)
[2018-01-04] MEDS: FUROSEMIDE 40 MG TABLET PO SCH ×2 (08:51→16:27)
[2018-01-04] MEDS ORDERED: FluPHENAZine HCL 5 MG TABLET PO SCH (09:00)
[2018-01-04] MEDS ORDERED: FluPHENAZine DECANOATE 25 MG/ML IM SCH (12:15)
[2018-01-04 16:17] VITALS: BP 109/66
[2018-01-04 16:25] VITALS: BP 112/70
[2018-01-04] MEDS: FluPHENAZine HCL 5 MG TABLET PO SCH (20:12)
[2018-01-05] MEDS ORDERED: ALBU8.5H8 IH (02:51)
[2018-01-05] MEDS ORDERED: OMEP20 PO (02:51)
[2018-01-05] MEDS ORDERED: FLUP5 PO ×2 (02:51)
[2018-01-05] MEDS ORDERED: BUSP5TAB20 PO (02:51)
[2018-01-05] MEDS ORDERED: CARV12 PO (02:51)
[2018-01-05] MEDS ORDERED: LISI-661 PO (02:51)
[2018-01-05] MEDS ORDERED: MULT-723 PO (02:51)
[2018-01-05] MEDS ORDERED: DSS100 PO (02:51)
[2018-01-05] MEDS ORDERED: FURO40 PO (02:51)
[2018-01-05] MEDS ORDERED: GABA-531 PO (02:51)
[2018-01-05] MEDS ORDERED: ALBU8HFA IH ×2 (05:37→05:50)
[2018-01-05 06:31] VITALS: BP 114/76
[2018-01-05] MEDS ORDERED: MULTIVITAMINS WITH MINERALS, THERAPEUTIC TABLET PO SCH (07:30)
== END 2018-01-05 07:20 | disposition home or self-care (01) | DRG 750 ==
LOC: B2S 20:18
PROVIDERS: ADMIT Psychiatry & Neurology Psychiatry; ATTEND Psychiatry & Neurology Psychiatry
DX: F20.0 Paranoid schizophrenia (principal); R45.851 Suicidal ideations; I11.0 Hypertensive heart disease with heart failure; I50.20 Unspecified systolic (congestive) heart failure; E55.9 Vitamin D deficiency, unspecified; D50.9 Iron deficiency anemia, unspecified; F17.200 Nicotine dependence, unspecified, uncomplicated; F79 Unspecified intellectual disabilities; G47.00 Insomnia, unspecified; K21.9 Gastro-esophageal reflux disease without esophagitis; Z59.0 Homelessness; Z91.14 Patient's other noncompliance with medication regimen; Z98.51 Tubal ligation status; Z88.0 Allergy status to penicillin; Z91.018 Allergy to other foods
CPT/HCPCS: 82306; 83036; 84439; 84443; 87081; J2680; J3535

== ENCOUNTER 2018-02-17 13:22 | Inpatient (IN) | payer MEDICAID ==
[~2018-02-17] VITALS: Ht 160 cm; Wt 68.9 kg
[~2018-02-17 13:22] MED LIST changes: -ALBU8.5H8 IH; +ALBU8HFA IH; -ARIP10TA8 PO; +BUSP5TAB20 PO; +DSS100 PO; -FLUP2.5 PO; +GABA-531 PO; +MULT-723 PO; +OMEP20 PO
[2018-02-17] MEDS ORDERED: ZOLPIDEM TARTRATE 10 MG TABLET PO PRN (15:00)
[2018-02-17] MEDS ORDERED: LORazepam 0.5 MG TABLET PO PRN (15:00)
[2018-02-17] MEDS ORDERED: FluPHENAZine HCL 5 MG TABLET PO PRN (15:00)
[2018-02-17] MEDS ORDERED: PNEUMOCOCCAL VACCINE POLYVALENT 0.5 ML VIAL [PPSV23] IM ONE (15:45)
[2018-02-17 16:04] VITALS: BP 126/82
[2018-02-17] MEDS: BusPIRone HCL 5 MG TABLET PO SCH (17:25)
[2018-02-17] MEDS ORDERED: DiphenhydrAMINE HCL 25 MG CAPSULE PO SCH (21:00)
[2018-02-18 07:01] VITALS: BP 128/72
[2018-02-18 08:15] LABS: AMPHET/METH SCREEN,URINE POSITIVE (NEGATIVE); BARBITURATE SCREEN, URINE NEGATIVE (NEGATIVE); BENZODIAZEPINES SCREEN,URINE NEGATIVE (NEGATIVE); CANNABINOID SCREEN,URINE NEGATIVE (NEGATIVE); COCAINE SCREEN,URINE POSITIVE (NEGATIVE); METHADONE SCREEN, URINE NEGATIVE (NEGATIVE); OPIATE SCREEN,URINE NEGATIVE (NEGATIVE); PHENCYCLIDINE SCREEN,URINE NEGATIVE (NEGATIVE)
[2018-02-18 08:39] VITALS: BP 104/66
[2018-02-18 08:44] LABS: APPEARANCE,URINE TURBID (CLEAR); GLUCOSE, URINE (UA) NEGATIVE (NEGATIVE); KETONES,URINE NEGATIVE (NEGATIVE); LEUKOCYTE ESTERASE ,URINE TRACE (NEGATIVE); NITRATE,URINE NEGATIVE (NEGATIVE); OCCULT BLOOD,URINE NEGATIVE (NEGATIVE); PH,URINE 5.5 (5.0-8.0); PROTEIN,URINE POS 1+ (NEGATIVE)
[2018-02-18] MEDS ORDERED: CloNIDine HCL 0.1 MG TABLET PO PRN (08:45)
[2018-02-18] MEDS ORDERED: BENZOCAINE/MENTHOL LOZENGE MM PRN (08:45)
[2018-02-18] MEDS ORDERED: MAG HYDROX/AL HYDROX/SIMETH ES 30 ML SUSPENSION UDCUP PO PRN (08:45)
[2018-02-18] MEDS ORDERED: PETROLATUM,WHITE 71 GM JELLY TP PRN (08:45)
[2018-02-18] MEDS ORDERED: ALBUTEROL SULFATE HFA 90 MCG/PUFF 8 GM INHALER IH PRN (08:45)
[2018-02-18] MEDS ORDERED: IBUPROFEN 600 MG TABLET PO PRN (08:45)
[2018-02-18] MEDS ORDERED: ONDANSETRON HCL 4 MG TABLET PO PRN (08:45)
[2018-02-18] MEDS ORDERED: ACETAMINOPHEN 325 MG TABLET PO PRN (08:45)
[2018-02-18] MEDS ORDERED: BACITRACIN 28.4 GM OINTMENT TP PRN (08:45)
[2018-02-18] MEDS ORDERED: MAGNESIUM HYDROXIDE SUSPENSION 30 ML UDCUP PO PRN (08:45)
[2018-02-18] MEDS ORDERED: LOPERAMIDE HCL 2 MG CAPSULE PO PRN (08:45)
[2018-02-18] MEDS ORDERED: FUROSEMIDE 40 MG TABLET PO SCH (09:00)
[2018-02-18] MEDS ORDERED: CARVEDILOL 12.5 MG TABLET PO SCH (09:00)
[2018-02-18] MEDS ORDERED: DOCUSATE SODIUM 100 MG CAPSULE PO SCH (09:00)
[2018-02-18] MEDS ORDERED: LISINOPRIL 5 MG TABLET PO SCH (09:00)
[2018-02-18] MEDS ORDERED: OMEPRAZOLE 20 MG CAPSULE PO SCH (09:00)
[2018-02-18] MEDS ORDERED: EMTRICITABINE/TENOFOVIR 200-300 MG TABLET PO SCH (09:00)
[2018-02-18 09:18] LABS: BILIRUBIN,URINE PRELIM. POSITIVE (NEGATIVE)
[2018-02-18 09:19] LABS: AMORPHOUS SEDIMENT,UR Many /LPF (None Seen); BACTERIA,URINE None Seen /HPF (None Seen); RBC,URINE 0-2 /HPF (0-2); WBC,URINE 0-2 /HPF (0-5)
[2018-02-18] MEDS: BusPIRone HCL 5 MG TABLET PO SCH (09:22)
[2018-02-18 13:45] VITALS: BP 150/69
[2018-02-18 13:55] VITALS: BP 84/59
[2018-02-18 14:15] VITALS: BP 86/59
[2018-02-18] MEDS ORDERED: MethylPREDNISolone SOD SUCC 40 MG/ML VIAL ONE (15:08)
[2018-02-18] MEDS ORDERED: DiphenhydrAMINE HCL 50 MG/ML VIAL ONE (15:08)
[2018-02-18] MEDS ORDERED: FAMOTIDINE 10 MG/ML 2 ML VIAL ONE (15:09)
[2018-02-19] MEDS ORDERED: MULTIVITAMINS WITH MINERALS, THERAPEUTIC TABLET PO SCH (06:30)
== END 2018-02-18 21:11 | disposition short-term general hospital (02) | DRG 750 ==
LOC: B3A 14:45
PROVIDERS: ADMIT Psychiatry & Neurology Psychiatry; ATTEND Psychiatry & Neurology Psychiatry
DX: F20.0 Paranoid schizophrenia (principal); R45.851 Suicidal ideations; I11.0 Hypertensive heart disease with heart failure; I50.20 Unspecified systolic (congestive) heart failure; D50.9 Iron deficiency anemia, unspecified; E55.9 Vitamin D deficiency, unspecified; F14.10 Cocaine abuse, uncomplicated; F15.10 Other stimulant abuse, uncomplicated; F17.200 Nicotine dependence, unspecified, uncomplicated; Z71.6 Tobacco abuse counseling; G47.00 Insomnia, unspecified; K21.9 Gastro-esophageal reflux disease without esophagitis; Z59.0 Homelessness; Z91.14 Patient's other noncompliance with medication regimen; Z98.51 Tubal ligation status; Z88.0 Allergy status to penicillin; Z88.8 Allergy status to other drugs, medicaments and biological substances; M79.89 Other specified soft tissue disorders; Z79.899 Other long term (current) drug therapy; Z28.21 Immunization not carried out because of patient refusal
CPT/HCPCS: 80307; 87081; 93970; J1200; J2920; J3490

== ENCOUNTER 2018-02-18 15:07 | Inpatient (IN) | payer MEDICAID, OTHER ==
[~2018-02-18] VITALS: Ht 162.6 cm; Wt 68.7 kg
[2018-02-18] MEDS ORDERED: MethylPREDNISolone SOD SUCC 40 MG/ML VIAL ONE (15:12)
[2018-02-18] MEDS ORDERED: FAMOTIDINE 10 MG/ML 2 ML VIAL IVP ONE (15:15)
[2018-02-18] MEDS ORDERED: MethylPREDNISolone SOD SUCC 125 MG/2 ML VIAL IVP ONE (15:15)
[2018-02-18 16:05] LABS: ANION GAP 8 mmol/L (8-16); CALCIUM, TOTAL 8.1 mg/dL (8.8-10.5); CARBON DIOXIDE 23 mmol/L (22-29); CHLORIDE 104 mmol/L (98-107); GLOMERULAR FILTR. RATE CALC > 60 mL/min (>60); GLUCOSE,RANDOM 73 mg/dL (70-110); POTASSIUM 5.9 mmol/L (3.5-5.1); SODIUM SERUM 135 mmol/L (136-145); UREA NITROGEN, BLOOD 19 mg/dL (7-18)
[2018-02-18 16:11] LABS: ALANINE AMINOTRANSFERASE 24 U/L (12-78); ALBUMIN 2.2 g/dL (3.4-5.0); ALKALINE PHOSPHATASE 183 U/L (46-116); ASPARTATE AMINOTRANSFERASE 57 U/L (15-37); BILIRUBIN,TOTAL 0.9 mg/dL (0.1-1.0); TOTAL PROTEIN, SERUM 9.1 g/dL (6.4-8.2)
[2018-02-18 17:20] LABS: BASOPHILS % (AUTO) 1.3 % (0.0-2.0); EOSINOPHILS % (AUTO) 6.7 % (1.0-6.0); HEMOGLOBIN 10.9 g/dL (12.0-16.0); LYMPHOCYTES # (AUTO) 1.1 K/uL (1.0-4.8); MEAN CORPUSCULAR HEMOGLOBIN 21.6 pg (26.0-34.0); MEAN CORPUSCULAR HGB CONC 29.6 G/dL (31.0-37.0); MEAN CORPUSCULAR VOLUME 73 fL (80-100); MONOCYTES # (AUTO) 0.5 K/uL (0.1-1.0); MONOCYTES % (AUTO) 12.3 % (2.0-9.0); NEUTROPHILS # (AUTO) 2.3 K/uL (1.8-7.7); NEUTROPHILS % (AUTO) 53.7 % (40.0-70.0); PLATELET COUNT (AUTO) 295 K/uL (150-450); RED BLOOD CELL COUNT(AUTO) 5.03 MIL/uL (4.00-5.20); RED CELL DISTRIBUTION WIDTH 22.8 % (11.5-14.5)
[2018-02-18 18:02] LABS: HEMATOCRIT 36.8 % (36-46)
[2018-02-18] MEDS ORDERED: ACETAMINOPHEN 325 MG TABLET PO PRN ×2 (18:30→19:30)
[2018-02-18] MEDS ORDERED: ONDANSETRON HCL 4 MG/2 ML VIAL IVP PRN ×2 (18:30→19:30)
[2018-02-18] MEDS ORDERED: 0.9% SODIUM CHLORIDE 10 ML SYRINGE IVP PRN ×2 (18:30→19:30)
[2018-02-18 18:47] LABS: ANION GAP 5 mmol/L (8-16); CALCIUM, TOTAL 7.8 mg/dL (8.8-10.5); CARBON DIOXIDE 25 mmol/L (22-29); CHLORIDE 105 mmol/L (98-107); CREATININE 1.07 mg/dL (0.60-1.30); GLOMERULAR FILTR. RATE CALC > 60 mL/min (>60); GLUCOSE,RANDOM 83 mg/dL (70-110); POTASSIUM 5.2 mmol/L (3.5-5.1); SODIUM SERUM 135 mmol/L (136-145); UREA NITROGEN, BLOOD 20 mg/dL (7-18)
[2018-02-18 18:53] LABS: ALANINE AMINOTRANSFERASE 19 U/L (12-78); ALBUMIN 1.8 g/dL (3.4-5.0); ALKALINE PHOSPHATASE 149 U/L (46-116); ASPARTATE AMINOTRANSFERASE 42 U/L (15-37); BILIRUBIN,TOTAL 0.8 mg/dL (0.1-1.0); TOTAL PROTEIN, SERUM 7.9 g/dL (6.4-8.2)
[2018-02-18] MEDS ORDERED: MAGNESIUM HYDROXIDE SUSPENSION 30 ML UDCUP PO PRN (19:30)
[2018-02-18] MEDS ORDERED: OxyCODONE HCL/ACETAMINOPHEN 5-325 MG TABLET PO PRN ×2 (19:30)
[2018-02-18] MEDS ORDERED: ALBUTEROL SULFATE 2.5 MG/0.5 ML NEB SOLUTION NEB PRN (19:45)
[2018-02-18] MEDS: IPRATROPIUM BROMIDE 0.5 MG/2.5 ML NEB SOLUTION NEB SCH (20:01)
[2018-02-18] MEDS: ALBUTEROL SULFATE 2.5 MG/0.5 ML NEB SOLUTION NEB SCH (20:02)
[2018-02-18] MEDS: PANTOPRAZOLE SODIUM 40 MG/VIAL IVP SCH (22:05)
[2018-02-18] MEDS: FUROSEMIDE 40 MG/4 ML VIAL IVP SCH (22:05)
[2018-02-18 22:25] VITALS: BP 101/53
[2018-02-18] MEDS: DOCUSATE SODIUM 100 MG CAPSULE PO SCH (22:25)
[2018-02-18] MEDS: FluPHENAZine HCL 5 MG TABLET PO SCH (22:25)
[2018-02-18] MEDS: BusPIRone HCL 5 MG TABLET PO SCH (22:30)
[2018-02-18] MEDS: GABAPENTIN 300 MG CAPSULE PO SCH (22:30)
[2018-02-18] MEDS: CARVEDILOL 12.5 MG TABLET PO SCH (22:54)
[2018-02-19] VITALS (7 sets, daily range): BP systolic 90–117; BP diastolic 37–84
[2018-02-19] MEDS: MethylPREDNISolone SOD SUCC 125 MG/2 ML VIAL IVP SCH ×3 (00:26→19:27)
[2018-02-19] MEDS: IPRATROPIUM BROMIDE 0.5 MG/2.5 ML NEB SOLUTION NEB SCH ×4 (02:11→20:05)
[2018-02-19] MEDS: ALBUTEROL SULFATE 2.5 MG/0.5 ML NEB SOLUTION NEB SCH ×4 (02:13→20:05)
[2018-02-19] MEDS: FluPHENAZine HCL 5 MG TABLET PO SCH ×2 (08:47→20:02)
[2018-02-19] MEDS: FUROSEMIDE 40 MG/4 ML VIAL IVP SCH ×2 (08:47→20:01)
[2018-02-19] MEDS: GABAPENTIN 300 MG CAPSULE PO SCH ×2 (08:47→20:02)
[2018-02-19] MEDS: PANTOPRAZOLE SODIUM 40 MG/VIAL IVP SCH (08:47)
[2018-02-19] MEDS: BusPIRone HCL 5 MG TABLET PO SCH ×2 (08:48→20:01)
[2018-02-19] MEDS: CARVEDILOL 12.5 MG TABLET PO SCH (09:00)
[2018-02-19] MEDS: DOCUSATE SODIUM 100 MG CAPSULE PO SCH ×2 (09:00→20:02)
[2018-02-19 09:26] LABS: BASOPHILS % (AUTO) 0.3 % (0.0-2.0); EOSINOPHILS % (AUTO) 0.1 % (1.0-6.0); HEMATOCRIT 36.9 % (36-46); HEMOGLOBIN 11.2 g/dL (12.0-16.0); LYMPHOCYTES # (AUTO) 0.7 K/uL (1.0-4.8); LYMPHOCYTES % (AUTO) 27.5 % (22.0-44.0); MEAN CORPUSCULAR HEMOGLOBIN 22.1 pg (26.0-34.0); MEAN CORPUSCULAR HGB CONC 30.5 G/dL (31.0-37.0); MEAN CORPUSCULAR VOLUME 73 fL (80-100); MONOCYTES # (AUTO) 0.1 K/uL (0.1-1.0); NEUTROPHILS # (AUTO) 1.8 K/uL (1.8-7.7); NEUTROPHILS % (AUTO) 67.1 % (40.0-70.0); PLATELET COUNT (AUTO) 305 K/uL (150-450); RED BLOOD CELL COUNT(AUTO) 5.08 MIL/uL (4.00-5.20)
[2018-02-19 09:29] LABS: ALANINE AMINOTRANSFERASE 19 U/L (12-78); ALBUMIN 1.7 g/dL (3.4-5.0); ALKALINE PHOSPHATASE 132 U/L (46-116); ANION GAP 4 mmol/L (8-16); ASPARTATE AMINOTRANSFERASE 45 U/L (15-37); BILIRUBIN,TOTAL 0.8 mg/dL (0.1-1.0); CALCIUM, TOTAL 7.8 mg/dL (8.8-10.5); CARBON DIOXIDE 28 mmol/L (22-29); CHLORIDE 105 mmol/L (98-107); CREATININE 1.12 mg/dL (0.60-1.30); GLOMERULAR FILTR. RATE CALC > 60 mL/min (>60); GLUCOSE,RANDOM 148 mg/dL (70-110); POTASSIUM 4.9 mmol/L (3.5-5.1); SODIUM SERUM 137 mmol/L (136-145); TOTAL PROTEIN, SERUM 7.6 g/dL (6.4-8.2); UREA NITROGEN, BLOOD 22 mg/dL (7-18)
[2018-02-19 12:19] LABS: BILIRUBIN,URINE NEGATIVE (NEGATIVE); GLUCOSE, URINE (UA) NEGATIVE (NEGATIVE); KETONES,URINE NEGATIVE (NEGATIVE); LEUKOCYTE ESTERASE ,URINE TRACE (NEGATIVE); NITRATE,URINE NEGATIVE (NEGATIVE); OCCULT BLOOD,URINE TRACE (NEGATIVE); PROTEIN,URINE NEGATIVE (NEGATIVE); UROBILINOGEN,URINE 0.2 mg/dL (<=1.0)
[2018-02-19 12:28] LABS: APPEARANCE,URINE HAZY (CLEAR); BACTERIA,URINE None Seen /HPF (None Seen); RBC,URINE 0-2 /HPF (0-2); SQUAMOUS EPITHELIAL CELL,UR Moderate /LPF (None Seen); WBC,URINE 0-2 /HPF (0-5)
[2018-02-19 13:40] LABS: B-TYPE NATRIURETIC PEPTIDE 3020 pg/mL (0-100)
[2018-02-19] MEDS ORDERED: LORazepam 2 MG/ML VIAL IVP PRN (19:45)
[2018-02-20] VITALS (7 sets, daily range): BP systolic 104–126; BP diastolic 62–91
[2018-02-20] MEDS: MethylPREDNISolone SOD SUCC 125 MG/2 ML VIAL IVP SCH ×3 (00:13→16:25)
[2018-02-20] MEDS: ALBUTEROL SULFATE 2.5 MG/0.5 ML NEB SOLUTION NEB SCH ×4 (02:02→19:43)
[2018-02-20] MEDS: IPRATROPIUM BROMIDE 0.5 MG/2.5 ML NEB SOLUTION NEB SCH ×4 (02:02→19:43)
[2018-02-20] MEDS: DOCUSATE SODIUM 100 MG CAPSULE PO SCH ×2 (07:50→20:01)
[2018-02-20] MEDS: CARVEDILOL 12.5 MG TABLET PO SCH (07:59)
[2018-02-20] MEDS: GABAPENTIN 300 MG CAPSULE PO SCH ×2 (07:59→20:01)
[2018-02-20] MEDS: BusPIRone HCL 5 MG TABLET PO SCH ×2 (07:59→20:01)
[2018-02-20] MEDS: FluPHENAZine HCL 5 MG TABLET PO SCH ×2 (07:59→20:01)
[2018-02-20] MEDS: PANTOPRAZOLE SODIUM 40 MG/VIAL IVP SCH (08:00)
[2018-02-20] MEDS: FUROSEMIDE 40 MG/4 ML VIAL IVP SCH (08:00)
[2018-02-20 09:06] LABS: BASOPHILS % (AUTO) 0.2 % (0.0-2.0); EOSINOPHILS % (AUTO) 0.1 % (1.0-6.0); HEMATOCRIT 38.9 % (36-46); HEMOGLOBIN 11.5 g/dL (12.0-16.0); LYMPHOCYTES % (AUTO) 11.8 % (22.0-44.0); MEAN CORPUSCULAR HEMOGLOBIN 21.9 pg (26.0-34.0); MEAN CORPUSCULAR HGB CONC 29.6 G/dL (31.0-37.0); MEAN CORPUSCULAR VOLUME 74 fL (80-100); MONOCYTES # (AUTO) 0.2 K/uL (0.1-1.0); MONOCYTES % (AUTO) 2.9 % (2.0-9.0); NEUTROPHILS # (AUTO) 7.3 K/uL (1.8-7.7); RED BLOOD CELL COUNT(AUTO) 5.24 MIL/uL (4.00-5.20); RED CELL DISTRIBUTION WIDTH 23.8 % (11.5-14.5)
[2018-02-20 09:09] LABS: PLATELET COUNT (AUTO) 285 K/uL (150-450)
[2018-02-20 09:21] LABS: CALCIUM, TOTAL 7.8 mg/dL (8.8-10.5); CREATININE 1.4 mg/dL (0.60-1.30); MAGNESIUM 1.9 mg/dL (1.80-2.40); POTASSIUM 5.5 mmol/L (3.5-5.1)
[2018-02-20 09:35] LABS: PHOSPHORUS 3.6 mg/dL (2.5-4.9)
[2018-02-20] MEDS ORDERED: PredniSONE 20 MG TABLET PO SCH (21:00)
[2018-02-20] MEDS ORDERED: FUROSEMIDE 20 MG TABLET PO SCH (21:00)
[2018-02-20] MEDS ORDERED: FAMOTIDINE 20 MG TABLET PO SCH (21:00)
[2018-02-21] MEDS ORDERED: CHLORHEXIDINE GLUCONATE 4% 118 ML TOPICAL LIQUID TP SCH (09:00)
== END 2018-02-20 22:15 | disposition left against medical advice (07) | DRG 811 ==
LOC: EMS 15:09 → 5S 19:06 → ICU 21:34
PROVIDERS: ADMIT Internal Medicine; ATTEND Internal Medicine
DX: T78.3XXA Angioneurotic edema, initial encounter (principal); J96.91 Respiratory failure, unspecified with hypoxia; E43 Unspecified severe protein-calorie malnutrition; I50.31 Acute diastolic (congestive) heart failure; F20.0 Paranoid schizophrenia; D64.9 Anemia, unspecified; F14.90 Cocaine use, unspecified, uncomplicated; F12.90 Cannabis use, unspecified, uncomplicated; Z91.048 Other nonmedicinal substance allergy status; E78.00 Pure hypercholesterolemia, unspecified; F17.210 Nicotine dependence, cigarettes, uncomplicated; F11.90 Opioid use, unspecified, uncomplicated; R41.82 Altered mental status, unspecified; J45.909 Unspecified asthma, uncomplicated; I11.0 Hypertensive heart disease with heart failure; T46.4X5A Adverse effect of angiotensin-converting-enzyme inhibitors, initial encounter; Z88.0 Allergy status to penicillin; Z91.018 Allergy to other foods; Z98.51 Tubal ligation status; Z91.14 Patient's other noncompliance with medication regimen; Z68.26 Body mass index [BMI] 26.0-26.9, adult; Y92.89 Other specified places as the place of occurrence of the external cause; Z53.21 Procedure and treatment not carried out due to patient leaving prior to being seen by health care provider
CPT/HCPCS: 83735; 84100; 87081; 93005; 93306; 94640; 96374; 96375; 99285; C9113; J1940; J2920; J2930

== ENCOUNTER 2018-02-28 10:10 | Emergency (ER) | payer OTHER ==
[~2018-02-28] VITALS: Ht 152.4 cm; Wt 80.5 kg
[2018-02-28 11:06] LABS: HEMOGLOBIN 10.1 g/dL (12.0-16.0); MEAN CORPUSCULAR HEMOGLOBIN 21.6 pg (26.0-34.0); MEAN CORPUSCULAR HGB CONC 29.8 G/dL (31.0-37.0); MEAN CORPUSCULAR VOLUME 73 fL (80-100); PLATELET COUNT (AUTO) 264 K/uL (150-450); RED BLOOD CELL COUNT(AUTO) 4.69 MIL/uL (4.00-5.20); RED CELL DISTRIBUTION WIDTH 23.1 % (11.5-14.5)
[2018-02-28 11:14] LABS: ANION GAP 4 mmol/L (8-16); CALCIUM, TOTAL 7.4 mg/dL (8.8-10.5); CARBON DIOXIDE 30 mmol/L (22-29); CHLORIDE 107 mmol/L (98-107); CREATININE 0.87 mg/dL (0.60-1.30); GLOMERULAR FILTR. RATE CALC > 60 mL/min (>60); GLUCOSE,RANDOM 79 mg/dL (70-110); POTASSIUM 4.5 mmol/L (3.5-5.1); SODIUM SERUM 141 mmol/L (136-145); UREA NITROGEN, BLOOD 16 mg/dL (7-18)
[2018-02-28 11:17] LABS: INR 1.1 (0.9-1.1); PROTHROMBIN TIME 11.9 SEC (9.4-11.6)
[2018-02-28 11:20] LABS: ALANINE AMINOTRANSFERASE 19 U/L (12-78); ALBUMIN 1.8 g/dL (3.4-5.0); ALKALINE PHOSPHATASE 112 U/L (46-116); ASPARTATE AMINOTRANSFERASE 30 U/L (15-37); BILIRUBIN,TOTAL 0.9 mg/dL (0.1-1.0); CREATINE KINASE, TOTAL ONLY 49 U/L (26-192); TOTAL PROTEIN, SERUM 6.7 g/dL (6.4-8.2)
[2018-02-28 11:23] LABS: BAND NEUTROPHILS % (MANUAL) 0 % (0-5)
[2018-02-28 11:25] LABS: EOSINOPHILS % (MANUAL) 1 % (1-6); LYMPHOCYTES % (MANUAL) 26 % (22-44); MONOCYTES % (MANUAL) 10 % (2-9); SEGMENTED NEUTROPHILS % 63 % (40-70)
[2018-02-28 11:29] LABS: B-TYPE NATRIURETIC PEPTIDE 1630 pg/mL (0-100)
[2018-02-28 12:56] VITALS: BP 99/72
== END 2018-02-28 14:18 | disposition home or self-care (01) ==
LOC: EMS 10:12
DX: I11.0 Hypertensive heart disease with heart failure (principal); I50.9 Heart failure, unspecified; J45.909 Unspecified asthma, uncomplicated; E78.00 Pure hypercholesterolemia, unspecified; F20.9 Schizophrenia, unspecified; Z91.14 Patient's other noncompliance with medication regimen; Z98.51 Tubal ligation status; Z79.899 Other long term (current) drug therapy; Z88.0 Allergy status to penicillin; Z91.018 Allergy to other foods
CPT/HCPCS: 71045; 80053; 82550; 83880; 84484; 85025; 85610; 85730; 93005; 99285; G0480